=== PATIENT | female | born 1960 | race Caucasian/White ===

== ENCOUNTER 2016-11-08 09:04 | Inpatient (IN) | payer OTHER ==
[~2016-11-08] VITALS: Ht 167.6 cm; Wt 110.5 kg
[~2016-11-08 09:04] MED LIST: ALBU8.5H3 INH; AZEL23SP NS; BUPIVACAINE/PF-EPI 0.5% 1:200K ONE; CEFD300C2 PO; CELE200C PO; ESOM20CA PO; ESTR0.6246 PO; FLUO40CA9 PO; FLUT1DIS3 INH; HYDR25TA6 PO; IPRA3AMP NPPB; LEVO100T PO; METH-356 PO; MODA200T12 PO; PRED-402 PO; PRED20TA PO; SOLI5TAB PO; TOFA5TAB PO; [UNRECOGNIZED DRUG - CODE] PO
[2016-11-08] MEDS ORDERED: MIDAZOLAM 1 MG/ML, 2ML ONE (10:19)
[2016-11-08] MEDS ORDERED: FENTANYL PF 250 MCG/5ML ONE (10:19)
[2016-11-08] MEDS ORDERED: LACTATED RINGERS 1,000 ML IV SCH (10:23)
[2016-11-08] MEDS ORDERED: [UNRECOGNIZED DRUG - OTHER] PO (10:25)
[2016-11-08] MEDS ORDERED: ativan PO (10:25)
[2016-11-08 10:30] VITALS: BP 132/86
[2016-11-08] MEDS ORDERED: HYDROCORTISONE 100 MG INJ. ONE (11:18)
[2016-11-08] MEDS ORDERED: ALBUTEROL SULFATE 2.5 MG/3 ML NPPB PRN (11:30)
[2016-11-08] MEDS ORDERED: METOCLOPRAMIDE 5 MG/ML, 2ML IV PRN (11:30)
[2016-11-08] MEDS ORDERED: MEPERIDINE/PF 25MG/0.5ML IVPush PRN (11:30)
[2016-11-08] MEDS ORDERED: HYDROmorphone 1 MG/ML, 1ML IV PRN (11:30)
[2016-11-08] MEDS ORDERED: ONDANSETRON 2MG/ML, 2ML IVPush PRN ×2 (11:30→12:30)
[2016-11-08] MEDS ORDERED: hydrALAzine 20 MG/ML, 1ML IV PRN (11:30)
[2016-11-08] MEDS ORDERED: LABETALOL 5MG/ML, 20ML IV PRN (11:30)
[2016-11-08] MEDS ORDERED: OXYcodone 5 MG/5 ML ORAL.SOL UDC PO PRN (11:30)
[2016-11-08] MEDS ORDERED: PROMETHAZINE 25 MG/ML, 1ML IV PRN (11:30)
[2016-11-08] MEDS ORDERED: DIPHENHYDRAMINE 25 MG CAPSULE PO PRN (12:30)
[2016-11-08] MEDS ORDERED: HYDROmorphone PCA 30 MG/30 ML IVPush PRN (12:30)
[2016-11-08] MEDS ORDERED: LORazepam 2 MG/ML, 1ML IVPush PRN (12:30)
[2016-11-08] MEDS ORDERED: DIPHENHYDRAMINE 50 MG/ML, 1ML IVPush PRN (12:30)
[2016-11-08] MEDS ORDERED: ENALAPRILAT 1.25 MG/ML, 2ML IVPush PRN (12:30)
[2016-11-08] MEDS ORDERED: hydrALAzine 20 MG/ML, 1ML IVPush PRN (12:30)
[2016-11-08] MEDS ORDERED: TEMPLATE NON-FORMULARY MED. (Esomeprazole Magnesium** (Nexium**) 40 MG) PO SCH (12:30)
[2016-11-08] MEDS ORDERED: HYDROmorphone PCA 30 MG/30 ML ONE (12:42)
[2016-11-08] MEDS ORDERED: FENTANYL PF 100 MCG/2ML ONE (12:52)
[2016-11-08] MEDS ORDERED: MEPERIDINE/PF 50 MG/ML ONE (12:52)
[2016-11-08] MEDS: FENTANYL PF 100 MCG/2ML IV PRN ×2 (12:55→13:05)
[2016-11-08] MEDS: LACTATED RINGERS 1,000 ML IV SCH (15:00)
[2016-11-08] MEDS: METHADONE 10 MG TABLET PO SCH ×3 (15:00→22:20)
[2016-11-08] MEDS ORDERED: CEFAZOLIN 1,000 MG ONE (15:48)
[2016-11-08] MEDS ORDERED: GLYCOPYRROLATE 0.2MG/1ML ONE (15:48)
[2016-11-08] MEDS ORDERED: ROCURONIUM 10 MG/ML ONE (15:48)
[2016-11-08] MEDS ORDERED: NEOSTIGMINE 1 MG/ML, 10ML ONE (15:48)
[2016-11-08] MEDS ORDERED: ONDANSETRON 2MG/ML, 2ML ONE (15:48)
[2016-11-08] MEDS ORDERED: PROPOFOL 10 MG/ML, 20ML ONE (15:48)
[2016-11-08] MEDS ORDERED: LORazepam 1MG TABLET ONE (16:44)
[2016-11-08 19:43] VITALS: BP 115/73
[2016-11-08] MEDS: CEFAZOLIN PMX 2GM/50ML 50 ML IVPB SCH (20:15)
[2016-11-08] MEDS ORDERED: ENOXAPARIN 40 MG/0.4 ML SQ SCH (21:00)
[2016-11-08] MEDS ORDERED: ALBUTEROL/IPRATROPIUM 2.5MG/0.5MG, 3 ML NPPB PRN (21:30)
[2016-11-08 23:55] VITALS: BP 98/57
[2016-11-08 23:56] VITALS: BP 116/76
[2016-11-09] MEDS ORDERED: LORazepam 1MG TABLET ONE ×2 (00:20→01:30)
[2016-11-09] MEDS: LORazepam 0.5MG TABLET PO PRN ×4 (00:30→16:13)
[2016-11-09] MEDS: LACTATED RINGERS 1,000 ML IV SCH ×2 (01:23→11:24)
[2016-11-09 03:20] VITALS: BP 112/74
[2016-11-09] MEDS: CEFAZOLIN PMX 2GM/50ML 50 ML IVPB SCH (04:22)
[2016-11-09] MEDS ORDERED: LEVOTHYROXINE 100 MCG TABLET PO SCH (06:00)
[2016-11-09 06:16] LABS: HEMOGLOBIN 10.8 g/dL (11.7-16.4)
[2016-11-09 06:30] LABS: BLOOD UREA NITROGEN 10 mg/dL (7-18)
[2016-11-09 06:48] VITALS: BP 115/71
[2016-11-09] MEDS: ALBUTEROL/IPRATROPIUM 2.5MG/0.5MG, 3 ML NPPB SCH ×3 (07:00→15:00)
[2016-11-09] MEDS ORDERED: Azelastine/Fluticasone (Dymista Nasal Spray) NS SCH (09:00)
[2016-11-09] MEDS ORDERED: FLUTICASONE/VILANTEROL 100-25MCG/INH INH SCH (09:00)
[2016-11-09] MEDS ORDERED: FLUOXETINE 20 MG CAPSULE PO SCH (09:00)
[2016-11-09] MEDS ORDERED: PANTOPROZOLE 40MG TABLET PO SCH (09:00)
[2016-11-09] MEDS: METHADONE 10 MG TABLET PO SCH ×2 (09:36→16:13)
[2016-11-09 13:27] VITALS: BP 106/71
[2016-11-09] MEDS ORDERED: HYDROmorphone 4MG TABLET PO PRN (13:30)
[2016-11-09] MEDS ORDERED: KETOROLAC 30 MG/1 ML IVPush PRN (13:30)
== END 2016-11-09 17:02 | disposition home or self-care (01) | DRG 168 ==
LOC: ORIP 09:48 → MERGE 11:00 → 4NOR 14:42
PROVIDERS: ADMIT Thoracic Surgery (Cardiothoracic Vascular Surgery); ATTEND Thoracic Surgery (Cardiothoracic Vascular Surgery)
PROC: 0BBC4ZX Excision of Right Upper Lung Lobe, Percutaneous Endoscopic Approach, Diagnostic (ICD-10-PCS; principal; 2016-11-08 11:00)
DX: J84.9 Interstitial pulmonary disease, unspecified (principal); F17.210 Nicotine dependence, cigarettes, uncomplicated; K21.9 Gastro-esophageal reflux disease without esophagitis; M54.9 Dorsalgia, unspecified; G89.4 Chronic pain syndrome; F32.9 Major depressive disorder, single episode, unspecified; E89.0 Postprocedural hypothyroidism; G47.30 Sleep apnea, unspecified; Z90.49 Acquired absence of other specified parts of digestive tract; Z98.49 Cataract extraction status, unspecified eye; Z90.710 Acquired absence of both cervix and uterus; Z90.722 Acquired absence of ovaries, bilateral; Z98.890 Other specified postprocedural states; Z79.52 Long term (current) use of systemic steroids; Z79.899 Other long term (current) drug therapy; Z82.49 Family history of ischemic heart disease and other diseases of the circulatory system; Z72.89 Other problems related to lifestyle
CPT/HCPCS: 36415; 71010; 80048; 85025; 87015; 87070; 87075; 87102; 87116; 87176; 87205; 87206; 88309; 94640; C1729; J0690; J1170; J1650; J1885; J2175; J2250; J2405; J2704; J2710; J3010; J3490; J7620; J1720; J7120

== ENCOUNTER → 2016-12-27 | Outpatient (CLI) | payer OTHER ==
[~2016-12-27] MED LIST changes: -BUPIVACAINE/PF-EPI 0.5% 1:200K ONE; -CEFD300C2 PO; +CEFD300C37 PO; +[UNRECOGNIZED DRUG - OTHER] PO; +ativan PO
== END | disposition home or self-care (01) ==
LOC: LAB 12:10
PROVIDERS: ATTEND Internal Medicine Endocrinology, Diabetes & Metabolism
DX: E89.0 Postprocedural hypothyroidism (principal)
CPT/HCPCS: 36415; 83036; 84439; 84443; 84481

== ENCOUNTER → 2017-05-23 | Outpatient (CLI) | payer OTHER ==
[~2017-05-23] MED LIST changes: -ALBU8.5H3 INH; +ALBU8.5H8 INH; -MODA200T12 PO; +MODA200T27 PO; -SOLI5TAB PO; +SOLI5TAB2 PO
== END | disposition home or self-care (01) ==
LOC: RAD 14:31
PROVIDERS: ATTEND Internal Medicine
DX: G47.33 Obstructive sleep apnea (adult) (pediatric) (principal); R06.09 Other forms of dyspnea; Z98.890 Other specified postprocedural states
CPT/HCPCS: 71250

== ENCOUNTER → 2017-07-04 | Outpatient (CLI) | payer OTHER | END | disposition home or self-care (01) | LOC: CFH 12:26 | PROVIDERS: ATTEND Internal Medicine | DX: R91.8 Other nonspecific abnormal finding of lung field (principal); M51.04 Intervertebral disc disorders with myelopathy, thoracic region; K76.89 Other specified diseases of liver; Z90.49 Acquired absence of other specified parts of digestive tract; Z98.890 Other specified postprocedural states | CPT/HCPCS: 71250 ==

== ENCOUNTER 2017-11-02 11:00 | Emergency (ER) | payer OTHER ==
[~2017-11-02] VITALS: Ht 167.6 cm; Wt 106.8 kg
[2017-11-02] MEDS ORDERED: SODIUM CHLORIDE FLUSH 10ML SYR IVF ONE (12:00)
[2017-11-02 12:43] LABS: MICROSCOPIC NOT IND
[2017-11-02 12:49] LABS: CULTURE INDICATED? NO
[2017-11-02 13:08] LABS: ALBUMIN 2.6 g/dL (3.4-5.0); ANION GAP 4 mmol/L (5-15); CALCIUM 8.1 mg/dL (8.5-10.1); CHLORIDE 104 mmol/L (98-107)
[2017-11-02 13:15] LABS: ALANINE AMINOTRANSFERASE 32 U/L (12-78); ALKALINE PHOSPHATASE 101 U/L (45-117); BILIRUBIN,TOTAL 0.3 mg/dL (0.2-1.0); CREATININE 0.61 mg/dL (0.55-1.02); T4 (THYROXINE) 10.9 mcg/dL (4.8-13.9); TOTAL PROTEIN 6.2 g/dL (6.4-8.2); TROPONIN I < 0.015 ng/mL (0.000-0.045)
[2017-11-02 13:50] LABS: MEAN CORPUSCULAR HEMOGLOBIN 25.2 pg (27.0-34.8); MEAN CORPUSCULAR HGB CONC 32.5 g/dL (32.4-35.8); MEAN CORPUSCULAR VOLUME 77.4 fL (80-100); MEAN PLATELET VOLUME 9.2 fL (7.4-10.4); PLATELET COUNT 173 x10^3/uL (130-400); RED BLOOD COUNT 4.23 x10^6/uL (3.82-5.3); RED CELL DISTRIBUTION WIDTH 18.3 % (9.6-15.2)
[2017-11-02 13:51] LABS: BASOPHILS # (AUTO) 0.07 x10^3/uL (0-0.1); BASOPHILS % (AUTO) 1 % (0-1); EOSINOPHILS # (AUTO) 0.16 x10^3/uL (0-0.4); EOSINOPHILS % (AUTO) 2 % (1-7); LYMPHOCYTES # (AUTO) 1.35 x10^3/uL (1-3.4); LYMPHOCYTES % (AUTO) 13 % (22-44); MONOCYTES # (AUTO) 0.63 x10^3/uL (0.2-0.8); MONOCYTES % (AUTO) 6 % (2-9); NEUTROPHILS # (AUTO) 7.94 x10^3/uL (1.8-6.8); NEUTROPHILS % (AUTO) 78 % (42-75)
[2017-11-02 13:52] LABS: MD MORPH REVIEW ONLY
[2017-11-02 13:56] LABS: ANISOCYTOSIS 1+
[2017-11-02 13:57] LABS: POLYCHROMASIA 1+
[2017-11-02 13:58] LABS: <PLATELET ESTIMATE> ADEQUATE; <PLT MORPHOLOGY> NORMAL PLT MORPH
[2017-11-02] MEDS ORDERED: POTASSIUM CHLORIDE 10% 40 MEQ/30 ML UDC PO ONE (14:30)
[2017-11-02 14:31] VITALS: BP 140/75
== END 2017-11-02 14:50 | disposition home or self-care (01) ==
LOC: ED 14:26
DX: I87.2 Venous insufficiency (chronic) (peripheral) (principal); D64.9 Anemia, unspecified; G47.33 Obstructive sleep apnea (adult) (pediatric); I10 Essential (primary) hypertension; J44.9 Chronic obstructive pulmonary disease, unspecified; Z87.891 Personal history of nicotine dependence; Z90.49 Acquired absence of other specified parts of digestive tract
CPT/HCPCS: 36415; 71045; 80053; 81003; 83735; 83880; 84436; 84443; 84484; 85025; 93005; 93970; 99285

== ENCOUNTER → 2017-12-07 | Outpatient (CLI) | payer OTHER | LOC: RAD 13:07 | PROVIDERS: ATTEND Nurse Practitioner | DX: R91.8 Other nonspecific abnormal finding of lung field (principal) | CPT/HCPCS: 71250 ==

== ENCOUNTER → 2017-12-10 | Outpatient (CLI) | payer OTHER | END | disposition home or self-care (01) | LOC: LAB 14:19 | PROVIDERS: ATTEND Internal Medicine | DX: R91.8 Other nonspecific abnormal finding of lung field (principal) | CPT/HCPCS: 36415; 82784; 82785; 86038; 86225; 86235 ==

== ENCOUNTER → 2018-01-17 | Outpatient (CLI) | payer OTHER ==
[~2018-01-17] MED LIST changes: +IVIG IV; +LORA-446 PO; +iron PO; +potassium PO
[2018-01-17 10:27] LABS: PROTHROMBIN TIME 10.3 Seconds (9.6-11.5)
[2018-01-17 10:31] LABS: ANION GAP 7 mmol/L (5-15); CALCIUM 8.6 mg/dL (8.5-10.1); CHLORIDE 103 mmol/L (98-107)
[2018-01-17 10:35] LABS: ALANINE AMINOTRANSFERASE 27 U/L (12-78); ALKALINE PHOSPHATASE 93 U/L (45-117); BILIRUBIN,TOTAL 0.4 mg/dL (0.2-1.0); CREATININE 0.79 mg/dL (0.55-1.02); TOTAL PROTEIN 6.6 g/dL (6.4-8.2)
[2018-01-17 10:53] LABS: MICROSCOPIC INDICATED
[2018-01-17 11:16] LABS: CULTURE INDICATED? NO
[2018-01-17 14:21] LABS: BASOPHILS # (AUTO) 0.01 x10^3/uL (0-0.1); BASOPHILS % (AUTO) 0 % (0-1); EOSINOPHILS # (AUTO) 0.14 x10^3/uL (0-0.4); EOSINOPHILS % (AUTO) 1 % (1-7); LYMPHOCYTES # (AUTO) 1.82 x10^3/uL (1-3.4); LYMPHOCYTES % (AUTO) 15 % (22-44); MD NO; MEAN CORPUSCULAR HEMOGLOBIN 24.7 pg (27.0-34.8); MEAN CORPUSCULAR HGB CONC 32.1 g/dL (32.4-35.8); MEAN CORPUSCULAR VOLUME 76.9 fL (80-100); MEAN PLATELET VOLUME 6.9 fL (7.4-10.4); MONOCYTES # (AUTO) 0.69 x10^3/uL (0.2-0.8); MONOCYTES % (AUTO) 6 % (2-9); NEUTROPHILS # (AUTO) 9.53 x10^3/uL (1.8-6.8); NEUTROPHILS % (AUTO) 78 % (42-75); PLATELET COUNT 369 x10^3/uL (130-400); RED BLOOD COUNT 4.71 x10^6/uL (3.82-5.3); RED CELL DISTRIBUTION WIDTH 19.8 % (9.6-15.2)
[2018-01-18 19:14] LABS: HEMOGLOBIN A1C 6.3 % (4.2-6.3)
== END | disposition home or self-care (01) ==
LOC: STAR 08:54
PROVIDERS: ATTEND Orthopaedic Surgery
DX: Z01.818 Encounter for other preprocedural examination (principal); M17.11 Unilateral primary osteoarthritis, right knee
CPT/HCPCS: 36415; 80053; 81001; 83036; 85025; 85610; 85730; 87081; 87147; 87806; G0475

== ENCOUNTER 2018-01-21 12:37 | Inpatient (IN) | payer OTHER ==
[2018-01-17 09:27] VITALS: BP 146/87
[~2018-01-21] VITALS: Ht 167.6 cm; Wt 98.0 kg
[~2018-01-21 12:37] MED LIST changes: +CEFAZOLIN 1,000 MG ONE; +DEXAMETHASONE 4 MG/ML, 1ML ONE; +LIDOCAINE-MPF 2% ,5ML ONE; +PROPOFOL 10 MG/ML, 20ML ONE; +ROCURONIUM 10MG/ML,5ML ONE; +WATER-INJECTION,STERILE 10 ML IV ONE
[2018-01-21] MEDS ORDERED: LACTATED RINGERS 1,000 ML IV SCH (13:12)
[2018-01-21] MEDS ORDERED: GABAPENTIN 300 MG CAPSULE PO SCH (13:30)
[2018-01-21] MEDS ORDERED: ACETAMINOPHEN 500 MG TABLET PO ONE (13:30)
[2018-01-21] MEDS ORDERED: KETOROLAC 60 MG/2 ML ONE (13:41)
[2018-01-21] MEDS ORDERED: TRANEXAMIC ACID 100 MG/ML, 10ML ONE ×4 (13:41→15:26)
[2018-01-21] MEDS ORDERED: EPINEPHRINE 1 MG/ML, 1ML ONE (13:42)
[2018-01-21] MEDS ORDERED: ROPIvacaine/PF 0.2%, 20 ML ONE (13:42)
[2018-01-21] MEDS ORDERED: MIDAZOLAM 1 MG/ML, 2ML ONE (13:59)
[2018-01-21] MEDS ORDERED: FENTANYL PF 250 MCG/5ML ONE (13:59)
[2018-01-21] MEDS ORDERED: OxyconTIN ER 10 MG TAB.ER ONE ×2 (14:42→14:58)
[2018-01-21] MEDS ORDERED: ONDANSETRON ODT 8 MG ONE (14:43)
[2018-01-21] MEDS: D5%-0.45NACL+KCL 20MEQ 1,000 ML IV SCH ×2 (14:47→23:43)
[2018-01-21] MEDS ORDERED: BUPIVACAINE 0.25% ONE (14:51)
[2018-01-21] MEDS ORDERED: LIDOCAINE-MPF 1%, 5ML ONE (14:52)
[2018-01-21] MEDS ORDERED: TRIAMCINOLONE ACETONIDE 40 MG/ML, 1ML ONE (14:52)
[2018-01-21] MEDS ORDERED: ALUMINUM/MAG/SIMETHICONE 30 ML UDC PO PRN (15:00)
[2018-01-21] MEDS ORDERED: ONDANSETRON 2MG/ML, 2ML IV PRN (15:00)
[2018-01-21] MEDS ORDERED: SENNA/DOCUSATE TABLET PO PRN (15:00)
[2018-01-21] MEDS ORDERED: MAGNESIUM HYDROXIDE 8%, 30ML UDC PO PRN (15:00)
[2018-01-21] MEDS ORDERED: ONDANSETRON 4 MG TABLET PO PRN (15:00)
[2018-01-21] MEDS ORDERED: ACETAMINOPHEN 650 MG/20.3 ML UDC PO PRN (15:00)
[2018-01-21] MEDS ORDERED: DIPHENHYDRAMINE 50 MG CAPSULE PO PRN (15:00)
[2018-01-21] MEDS ORDERED: morphine SULFATE 15 MG TAB.IR PO PRN (15:00)
[2018-01-21] MEDS ORDERED: morphine SULFATE 10 MG/ML, 1ML IV PRN (15:00)
[2018-01-21] MEDS ORDERED: DIAZEPAM 5 MG TABLET PO PRN (15:00)
[2018-01-21] MEDS ORDERED: TRANEXAMIC ACID 1,000 MG in SODIUM CHLORIDE 0.9% 100 ML IVPB ONE (15:00)
[2018-01-21] MEDS ORDERED: hydrALAzine 20 MG/ML, 1ML IV PRN (16:00)
[2018-01-21] MEDS ORDERED: MEPERIDINE/PF 25MG/0.5ML IVPush PRN (16:00)
[2018-01-21] MEDS ORDERED: HALOPERIDOL 5 MG/ML IV PRN (16:00)
[2018-01-21] MEDS ORDERED: PROMETHAZINE 25 MG/ML, 1ML IV PRN (16:00)
[2018-01-21] MEDS ORDERED: OXYcodone 5 MG/5 ML ORAL.SOL UDC PO PRN (16:00)
[2018-01-21] MEDS ORDERED: LABETALOL 5MG/ML, 20ML IV PRN (16:00)
[2018-01-21] MEDS ORDERED: LORazepam 2 MG/ML, 1ML IVPush PRN (16:00)
[2018-01-21] MEDS ORDERED: HYDROmorphone 1 MG/ML, 1ML IV PRN (16:00)
[2018-01-21] MEDS ORDERED: FENTANYL PF 100 MCG/2ML ONE (16:34)
[2018-01-21] MEDS ORDERED: OXYcodone 5 MG/5 ML ORAL.SOL UDC ONE (16:35)
[2018-01-21] MEDS: FENTANYL PF 100 MCG/2ML IV PRN ×2 (16:40→17:01)
[2018-01-21] MEDS ORDERED: ALBUTEROL/IPRATROPIUM 2.5MG/0.5MG, 3 ML ONE (16:47)
[2018-01-21] MEDS ORDERED: ALBUTEROL/IPRATROPIUM 2.5MG/0.5MG, 3 ML NEB ONE (17:00)
[2018-01-21] MEDS ORDERED: DIPHENHYDRAMINE 25 MG CAPSULE PO PRN (18:21)
[2018-01-21] MEDS ORDERED: ALBUTEROL SULFATE 2.5MG/0.5ML NPPB PRN (19:00)
[2018-01-21 20:04] VITALS: BP 139/66
[2018-01-21] MEDS: METHADONE 10 MG TABLET PO SCH (20:57)
[2018-01-21] MEDS: DOCUSATE 100 MG CAPSULE PO SCH (20:57)
[2018-01-21] MEDS: FLUOXETINE HCL 20 MG CAPSULE PO SCH (20:57)
[2018-01-21] MEDS: CEFAZOLIN PMX 1GM/50ML 50 ML IVPB SCH (23:12)
[2018-01-21] MEDS: LORazepam 1MG TABLET PO SCH (23:42)
[2018-01-22 00:15] VITALS: BP 111/55
[2018-01-22 04:28] VITALS: BP 110/70
[2018-01-22] MEDS: METHADONE 10 MG TABLET PO SCH (05:02)
[2018-01-22] MEDS ORDERED: LEVOTHYROXINE 100 MCG TABLET PO SCH (06:00)
[2018-01-22] MEDS ORDERED: DEXAMETHASONE 4 MG/ML, 1ML IVPush SCH (06:00)
[2018-01-22] MEDS: LORazepam 1MG TABLET PO SCH (06:04)
[2018-01-22] MEDS: CEFAZOLIN PMX 1GM/50ML 50 ML IVPB SCH (06:09)
[2018-01-22] MEDS ORDERED: PANTOPROZOLE 40MG TABLET PO SCH (07:30)
[2018-01-22 08:12] VITALS: BP 135/76
[2018-01-22] MEDS: FLUOXETINE HCL 20 MG CAPSULE PO SCH (08:54)
[2018-01-22] MEDS: DOCUSATE 100 MG CAPSULE PO SCH (08:54)
[2018-01-22] MEDS ORDERED: RIVAROXABAN 10 MG TABLET PO SCH (09:00)
[2018-01-22] MEDS ORDERED: TAMSULOSIN 0.4 MG CAP.ER.24H PO SCH (09:00)
[2018-01-22] MEDS ORDERED: HYDROCHLOROTHIAZIDE 25 MG TABLET PO SCH (09:00)
[2018-01-22] MEDS ORDERED: CELE200C PO (09:10)
[2018-01-22] MEDS ORDERED: ONDA4TAB10 PO (09:10)
[2018-01-22] MEDS ORDERED: RIVA10TA PO (09:10)
[2018-01-22] MEDS ORDERED: DOCU-131 PO (09:10)
[2018-01-22] MEDS ORDERED: morphine SULFATE 10 MG/ML, 1ML IV PRN (11:00)
[2018-01-22] MEDS ORDERED: KETOROLAC 30 MG/1 ML IV SCH (15:00)
== END 2018-01-22 11:00 | disposition home or self-care (01) | DRG 470 ==
LOC: ORIP 12:37 → 4NOR 18:05 → DCLOUNGE 01-22 10:35
PROVIDERS: ADMIT Orthopaedic Surgery; ATTEND Orthopaedic Surgery
PROC: 3E0U33Z Introduction of Anti-inflammatory into Joints, Percutaneous Approach (ICD-10-PCS; 2018-01-21)
PROC: 0SRC069 Replacement of Right Knee Joint with Oxidized Zirconium on Polyethylene Synthetic Substitute, Cemented, Open Approach (ICD-10-PCS; principal; 2018-01-21 15:30)
DX: M17.0 Bilateral primary osteoarthritis of knee (principal); K21.9 Gastro-esophageal reflux disease without esophagitis; G47.30 Sleep apnea, unspecified; H40.9 Unspecified glaucoma; M06.9 Rheumatoid arthritis, unspecified; Z90.49 Acquired absence of other specified parts of digestive tract; Z90.89 Acquired absence of other organs
CPT/HCPCS: 36415; 85014; 85018; 94640; C1713; J0171; J0690; J1100; J1885; J2250; J2704; J2795; J3010; J3301; J3490; J7620; Q0162; C1776; J2270; J7120

== ENCOUNTER 2018-03-18 10:34 | Observation (INO) | payer OTHER ==
[2018-03-14 12:20] VITALS: BP 122/81
[2018-03-15 12:22] LABS: MEAN CORPUSCULAR HEMOGLOBIN 27.5 pg (27.0-34.8); MEAN CORPUSCULAR HGB CONC 32.9 g/dL (32.4-35.8); MEAN CORPUSCULAR VOLUME 83.6 fL (80-100); MEAN PLATELET VOLUME 10.1 fL (7.4-10.4); RED CELL DISTRIBUTION WIDTH 21.2 % (9.6-15.2)
[2018-03-15 12:47] LABS: PLATELET COUNT 235 x10^3/uL (130-400)
[2018-03-15 12:51] LABS: MD YES
[2018-03-15 12:54] LABS: BAND#(MANUAL) 0.07 x10^3/uL; BANDS%(MANUAL) 1 % (0-7); EOS#(MANUAL) 0.07 x10^3/uL (0.0-0.4); EOS% (MANUAL) 1 % (1-7); LYMPH#(MANUAL) 0.91 x10^3/uL (1-3.4); LYMPHS% (MANUAL) 13 % (22-44); MONOS#(MANUAL) 0.21 x10^3/uL (0.3-2.7); MONOS% (MANUAL) 3 % (2-9); SEG#(MANUAL) 5.74 x10^3/uL (1.8-6.8); SEGS% (MANUAL) 82 % (42-75)
[2018-03-15 12:55] LABS: <PLATELET ESTIMATE> ADEQUATE; <PLT MORPHOLOGY> NORMAL PLT MORPH; ANISOCYTOSIS 1+
[~2018-03-18] VITALS: Ht 167.6 cm; Wt 89.7 kg
[~2018-03-18 10:34] MED LIST changes: -CEFAZOLIN 1,000 MG ONE; -DEXAMETHASONE 4 MG/ML, 1ML ONE; +DOCU-131 PO; +EPINEPHRINE 1 MG/ML, 1ML ONE; -IPRA3AMP NPPB; +IPRA3AMP30 NPPB; +KETOROLAC 60 MG/2 ML ONE; -LIDOCAINE-MPF 2% ,5ML ONE; +MULT-658 PO; +ONDA4TAB10 PO; -PROPOFOL 10 MG/ML, 20ML ONE; +RIVA10TA PO; -ROCURONIUM 10MG/ML,5ML ONE; +ROPIvacaine/PF 0.2%, 20 ML ONE; +TRANEXAMIC ACID 100 MG/ML, 10ML ONE; -WATER-INJECTION,STERILE 10 ML IV ONE
[2018-03-18] MEDS ORDERED: LACTATED RINGERS 1,000 ML IV SCH (11:07)
[2018-03-18] MEDS ORDERED: LIDOCAINE-MPF 1%, 2ML INFIL ONE (11:30)
[2018-03-18] MEDS ORDERED: ACETAMINOPHEN 500 MG TABLET PO ONE (11:30)
[2018-03-18] MEDS ORDERED: GABAPENTIN 300 MG CAPSULE PO ONE (11:30)
[2018-03-18] MEDS ORDERED: FENTANYL PF 250 MCG/5ML ONE (11:55)
[2018-03-18] MEDS ORDERED: MIDAZOLAM 1 MG/ML, 2ML ONE (11:55)
[2018-03-18] MEDS ORDERED: PROPOFOL 10 MG/ML, 20ML ONE (11:56)
[2018-03-18] MEDS ORDERED: ROCURONIUM 10MG/ML,5ML ONE (11:57)
[2018-03-18] MEDS ORDERED: GLYCOPYRROLATE 0.4 MG/2 ML, 2ML ONE (11:58)
[2018-03-18] MEDS ORDERED: NEOSTIGMINE 1 MG/ML, 10ML ONE (11:58)
[2018-03-18] MEDS ORDERED: ROPIvacaine/PF 0.2%, 20 ML ONE (12:00)
[2018-03-18] MEDS ORDERED: ONDANSETRON 2MG/ML, 2ML ONE (13:27)
[2018-03-18] MEDS ORDERED: DEXAMETHASONE 4 MG/ML, 1ML ONE ×2 (13:27)
[2018-03-18] MEDS ORDERED: PROMETHAZINE 12.5 MG SUPP PR PRN ×2 (13:30)
[2018-03-18] MEDS ORDERED: LABETALOL 5MG/ML, 20ML IV PRN (13:30)
[2018-03-18] MEDS ORDERED: PROMETHAZINE 25 MG/ML, 1ML IV PRN (13:30)
[2018-03-18] MEDS ORDERED: MAGNESIUM HYDROXIDE 8%, 30ML UDC PO PRN (13:30)
[2018-03-18] MEDS ORDERED: ALBUTEROL/IPRATROPIUM 2.5MG/0.5MG, 3 ML NPPB PRN (13:30)
[2018-03-18] MEDS ORDERED: SENNA/DOCUSATE TABLET PO PRN (13:30)
[2018-03-18] MEDS ORDERED: DIPHENHYDRAMINE 50 MG CAPSULE PO PRN (13:30)
[2018-03-18] MEDS ORDERED: morphine SULFATE 15 MG TAB.IR PO PRN (13:30)
[2018-03-18] MEDS ORDERED: MORPHINE SULFATE 4 MG/ML, 1ML IVPush PRN (13:30)
[2018-03-18] MEDS ORDERED: ALUMINUM/MAG/SIMETHICONE 30 ML UDC PO PRN (13:30)
[2018-03-18] MEDS ORDERED: ONDANSETRON ODT 8 MG PO PRN (13:30)
[2018-03-18] MEDS ORDERED: PROMETHAZINE 25 MG/ML, 1ML IM PRN (13:30)
[2018-03-18] MEDS ORDERED: ONDANSETRON 4 MG TABLET PO PRN (13:30)
[2018-03-18] MEDS ORDERED: ALBUTEROL SULFATE 2.5 MG/3 ML NPPB PRN (13:30)
[2018-03-18] MEDS ORDERED: OXYcodone 5 MG/5 ML ORAL.SOL UDC PO PRN (13:30)
[2018-03-18] MEDS ORDERED: ONDANSETRON 2MG/ML, 2ML IV PRN ×2 (13:30)
[2018-03-18] MEDS ORDERED: PROMETHAZINE 25 MG SUPP PR PRN (13:30)
[2018-03-18] MEDS ORDERED: ACETAMINOPHEN 650 MG/20.3 ML UDC PO PRN (13:30)
[2018-03-18] MEDS ORDERED: MEPERIDINE/PF 25MG/0.5ML IVPush PRN (13:30)
[2018-03-18] MEDS ORDERED: TRANEXAMIC ACID 1,000 MG in SODIUM CHLORIDE 0.9% 100 ML IVPB ONE (13:30)
[2018-03-18] MEDS ORDERED: BISACODYL 10 MG SUPP PR PRN (13:30)
[2018-03-18] MEDS ORDERED: morphine SULFATE 10 MG/ML, 1ML IV PRN ×4 (13:30→17:30)
[2018-03-18] MEDS ORDERED: hydrALAzine 20 MG/ML, 1ML IV PRN (13:30)
[2018-03-18] MEDS ORDERED: FENTANYL PF 100 MCG/2ML ONE ×3 (13:49→14:55)
[2018-03-18] MEDS: FENTANYL PF 100 MCG/2ML IV PRN ×2 (14:57→15:02)
[2018-03-18] MEDS ORDERED: OXYcodone 5 MG/5 ML ORAL.SOL UDC ONE (15:09)
[2018-03-18] MEDS: HYDROmorphone 1 MG/ML, 1ML IV PRN ×3 (15:12→15:30)
[2018-03-18] MEDS ORDERED: ALBUTEROL SULFATE 2.5 MG/3 ML HHN PRN (17:00)
[2018-03-18] MEDS: METHADONE 10 MG TABLET PO SCH (17:46)
[2018-03-18] MEDS: D5%-0.45NACL+KCL 20MEQ 1,000 ML IV SCH (18:43)
[2018-03-18 20:00] VITALS: BP 117/50
[2018-03-18] MEDS: DOCUSATE 100 MG CAPSULE PO SCH (21:00)
[2018-03-18] MEDS: LORazepam 1MG TABLET PO SCH (21:14)
[2018-03-18] MEDS: FLUOXETINE HCL 20 MG CAPSULE PO SCH (21:14)
[2018-03-18] MEDS: CEFAZOLIN PMX 1GM/50ML 50 ML IVPB SCH (21:14)
[2018-03-18 23:54] VITALS: BP 110/69
[2018-03-19] MEDS: METHADONE 10 MG TABLET PO SCH ×2 (02:36→08:49)
[2018-03-19] MEDS: LORazepam 1MG TABLET PO SCH (02:43)
[2018-03-19] MEDS: D5%-0.45NACL+KCL 20MEQ 1,000 ML IV SCH (03:00)
[2018-03-19 05:04] VITALS: BP 125/76
[2018-03-19] MEDS ORDERED: DEXAMETHASONE 4 MG/ML, 1ML IVPush SCH (06:00)
[2018-03-19] MEDS ORDERED: LEVOTHYROXINE 100 MCG TABLET PO SCH (06:00)
[2018-03-19] MEDS: morphine SULFATE 10 MG/ML, 1ML IV PRN ×2 (06:31→07:38)
[2018-03-19] MEDS: CEFAZOLIN PMX 1GM/50ML 50 ML IVPB SCH (06:31)
[2018-03-19 07:00] VITALS: BP 133/78
[2018-03-19] MEDS ORDERED: OMEPRAZOLE 20 MG CAPSULE.DR PO SCH (07:30)
[2018-03-19] MEDS: FLUOXETINE HCL 20 MG CAPSULE PO SCH (08:49)
[2018-03-19] MEDS: DOCUSATE 100 MG CAPSULE PO SCH (08:50)
[2018-03-19] MEDS ORDERED: RIVAROXABAN 10 MG TABLET PO SCH (09:00)
[2018-03-19] MEDS ORDERED: HYDROCHLOROTHIAZIDE 25 MG TABLET PO SCH (09:00)
[2018-03-19] MEDS ORDERED: TAMSULOSIN 0.4 MG CAP.ER.24H PO SCH (09:00)
[2018-03-19] MEDS ORDERED: DOCU-131 PO (09:48)
[2018-03-19] MEDS ORDERED: RIVA10TA PO (09:48)
[2018-03-19] MEDS ORDERED: CELE200C PO (09:49)
[2018-03-19] MEDS ORDERED: ONDA4TAB7 PO (09:49)
[2018-03-19] MEDS ORDERED: MORP30TA PO (11:03)
[2018-03-19] MEDS ORDERED: KETOROLAC 30 MG/1 ML IV SCH (17:00)
== END 2018-03-19 11:23 | disposition home or self-care (01) ==
LOC: OUT 10:34 → ORIP 13:10 → 4NOR 16:34 → DCLOUNGE 03-19 10:58
PROVIDERS: ADMIT Orthopaedic Surgery; ATTEND Orthopaedic Surgery
DX: M17.12 Unilateral primary osteoarthritis, left knee (principal); M23.205 Derangement of unspecified medial meniscus due to old tear or injury, unspecified knee
CPT/HCPCS: 27447; 36415; 73560; 85014; 85018; 85025; 96365; 96375; 96376; 97116; 97161; 97165; C1713; C1776; G0378; G8978; G8979; G8980; J0171; J0690; J1100; J1170; J1885; J2250; J2270; J2405; J2704; J2710; J2795; J3010; J3480; J7120

== ENCOUNTER 2018-09-23 11:56 | Inpatient (IN) | payer OTHER ==
[~2018-09-23] VITALS: Ht 167.6 cm; Wt 90.8 kg
[~2018-09-23 11:56] MED LIST changes: -EPINEPHRINE 1 MG/ML, 1ML ONE; -KETOROLAC 60 MG/2 ML ONE; -METH-356 PO; +METH10TA2 PO; +MORP30TA PO; +ONDA4TAB7 PO; -RIVA10TA PO; +RIVA10TA2 PO; -ROPIvacaine/PF 0.2%, 20 ML ONE; -TRANEXAMIC ACID 100 MG/ML, 10ML ONE
[2018-09-23] MEDS ORDERED: ALBUTEROL SULFATE 2.5 MG/3 ML NPPB ONE (12:30)
[2018-09-23 13:08] LABS: ALBUMIN 2.7 g/dL (3.4-5.0); ANION GAP 4 mmol/L (5-15); CALCIUM 8.3 mg/dL (8.5-10.1); CHLORIDE 100 mmol/L (98-107)
[2018-09-23 13:11] LABS: CREATININE 0.77 mg/dL (0.55-1.02)
[2018-09-23 13:26] LABS: MEAN CORPUSCULAR HEMOGLOBIN 27.2 pg (27.0-34.8); MEAN CORPUSCULAR HGB CONC 32.2 g/dL (32.4-35.8); MEAN CORPUSCULAR VOLUME 84.3 fL (80-100); MEAN PLATELET VOLUME 9.1 fL (7.4-10.4); PLATELET COUNT 236 x10^3/uL (130-400); RED BLOOD COUNT 4.28 x10^6/uL (3.82-5.3); RED CELL DISTRIBUTION WIDTH 17.5 % (9.6-15.2)
[2018-09-23 13:27] LABS: BASOPHILS # (AUTO) 0.04 x10^3/uL (0-0.1); BASOPHILS % (AUTO) 0 % (0-1); EOSINOPHILS # (AUTO) 0.28 x10^3/uL (0-0.4); EOSINOPHILS % (AUTO) 2 % (1-7); LYMPHOCYTES # (AUTO) 0.78 x10^3/uL (1-3.4); LYMPHOCYTES % (AUTO) 6 % (22-44); MD MORPH REVIEW ONLY; MONOCYTES # (AUTO) 0.65 x10^3/uL (0.2-0.8); MONOCYTES % (AUTO) 5 % (2-9); NEUTROPHILS # (AUTO) 11.89 x10^3/uL (1.8-6.8); NEUTROPHILS % (AUTO) 87 % (42-75)
[2018-09-23 13:28] LABS: ANISOCYTOSIS 1+; POLYCHROMASIA 1+
[2018-09-23 13:29] LABS: <PLATELET ESTIMATE> ADEQUATE; LARGE PLATELETS 1+; STOMATOCYTES 1+
--- NOTE | 2018-09-23 13:50 | NUR ---
PT PRESENTING TO ER FOR INCREASED SOB WITH COUGH AND CP. PT ATTMEPTED TO SEE PULM TODAY BUT COULDNT GET IN FOR APT. PT REPORTING RECURRENT PNA AND STATES FEELS THE SAME. CONNECTED TO ALL MONITORING, SATS 90% ON 4L, PT NORMALLY ON 3L 05/03. AT BEDSIDE. CALL LIGHT WTIHINR EACH. AWAITING MD ASSESSMENT
[2018-09-23] MEDS ORDERED: ALBUTEROL SULFATE 2.5 MG/3 ML ONE (13:56)
--- NOTE | 2018-09-23 14:19 | NUR ---
RT TREATMENT COMPLETED. PT STATS UP SLIGHTLY FROM 90% TO 93% AFTER TREATMENT. PT STATES COUGH FEELS LOOSER
--- NOTE | 2018-09-23 14:54 | NUR ---
REPORT GIVEN TO SAI FARRIS
[2018-09-23] MEDS ORDERED: CEFTRIAXONE PMX 1GM/50ML 50 ML IV ONE (15:00)
[2018-09-23] MEDS ORDERED: AZITHROMYCIN 500 MG in SODIUM CHLORIDE 0.9% 250 ML IV ONE (15:00)
[2018-09-23] MEDS ORDERED: methylPREDNISolone SOD SUCC 125 MG/2 ML IVPush ONE (15:00)
[2018-09-23] MEDS ORDERED: CEFTRIAXONE PMX 1GM/50ML 50 ML ONE (15:11)
[2018-09-23] MEDS ORDERED: methylPREDNISolone SOD SUCC 125 MG/2 ML ONE (15:12)
--- NOTE | 2018-09-23 15:26 | NUR ---
ABX STARTED AFTER BLOOD CULTURES DRAWN
[2018-09-23] MEDS ORDERED: LORazepam 2 MG/ML, 1ML ONE (16:55)
[2018-09-23] MEDS ORDERED: LORazepam 2 MG/ML, 1ML IVPush ONE (17:00)
--- NOTE | 2018-09-23 17:25 | NUR ---
PT MEDICATED PER EMAR
[2018-09-23] MEDS ORDERED: LABETALOL 5MG/ML, 20ML IVPush PRN (17:30)
[2018-09-23] MEDS ORDERED: ONDANSETRON 2MG/ML, 2ML IVPush PRN (17:30)
[2018-09-23] MEDS ORDERED: ONDANSETRON ODT 4 MG PO PRN (17:30)
[2018-09-23] MEDS ORDERED: POLYETHYLENE GLYCOL 17 GM PACKET PO PRN (17:30)
--- NOTE | 2018-09-23 17:46 | NUR ---
Ambulated with a steady gait to the restroom. Pateint taken off oxy mask and placed on 5L NC per her request. Ok'd by primary RN Sue. Provided with meal tray. No other needs.
[2018-09-23 17:51] LABS: FREE T4 (FREE THYROXINE) 1.17 ng/dL (0.76-1.46)
--- NOTE | 2018-09-23 17:58 | NUR ---
report given to fela denis
[2018-09-23] MEDS ORDERED: POTASSIUM CHLORIDE 20 MEQ TAB.ER.PRT PO ONE ×2 (18:00→22:00)
[2018-09-23] MEDS ORDERED: ONDANSETRON 4 MG TABLET PO PRN (18:00)
[2018-09-23] MEDS ORDERED: SODIUM CHLORIDE 0.9% 1,000 ML IV SCH (18:18)
[2018-09-23] MEDS: methylPREDNISolone SOD SUCC 125 MG/2 ML IVPush SCH (18:42)
[2018-09-23 19:42] VITALS: BP 107/70
[2018-09-23] MEDS ORDERED: ALBUTEROL/IPRATROPIUM 2.5MG/0.5MG, 3 ML NPPB PRN (20:00)
[2018-09-23] MEDS: ENOXAPARIN 40 MG/0.4 ML SQ SCH (20:06)
[2018-09-23] MEDS: BUDESONIDE 0.5 MG/2 ML INHA NPPB SCH (21:00)
[2018-09-23] MEDS: LORazepam 1MG TABLET PO SCH (21:00)
[2018-09-23] MEDS: ALBUTEROL/IPRATROPIUM 2.5MG/0.5MG, 3 ML NPPB SCH (21:00)
[2018-09-23] MEDS: DOXYCYCLINE 100MG TABLET PO SCH (22:02)
[2018-09-23] MEDS: METHADONE 10 MG TABLET PO SCH (22:02)
[2018-09-23] MEDS: FLUOXETINE HCL 20 MG CAPSULE PO SCH (22:03)
[2018-09-24] MEDS: methylPREDNISolone SOD SUCC 125 MG/2 ML IVPush SCH ×4 (00:59→18:39)
[2018-09-24 02:10] VITALS: BP 106/60
[2018-09-24] MEDS: ALBUTEROL/IPRATROPIUM 2.5MG/0.5MG, 3 ML NPPB SCH ×4 (02:30→20:40)
[2018-09-24] MEDS: LORazepam 1MG TABLET PO SCH ×4 (05:35→21:49)
[2018-09-24] MEDS ORDERED: LEVOTHYROXINE 100 MCG TABLET PO SCH (06:00)
[2018-09-24 06:10] LABS: BASOPHILS % (AUTO) 0 % (0-1); EOSINOPHILS % (AUTO) 0 % (1-7); LYMPHOCYTES # (AUTO) 0.37 x10^3/uL (1-3.4); LYMPHOCYTES % (AUTO) 3 % (22-44); MD NO; MEAN CORPUSCULAR HEMOGLOBIN 28.2 pg (27.0-34.8); MEAN CORPUSCULAR HGB CONC 33.3 g/dL (32.4-35.8); MEAN CORPUSCULAR VOLUME 84.8 fL (80-100); MEAN PLATELET VOLUME 8.3 fL (7.4-10.4); MONOCYTES # (AUTO) 0.26 x10^3/uL (0.2-0.8); MONOCYTES % (AUTO) 2 % (2-9); NEUTROPHILS # (AUTO) 10.18 x10^3/uL (1.8-6.8); NEUTROPHILS % (AUTO) 94 % (42-75); PLATELET COUNT 243 x10^3/uL (130-400); RED BLOOD COUNT 3.75 x10^6/uL (3.82-5.3); RED CELL DISTRIBUTION WIDTH 17.6 % (9.6-15.2)
[2018-09-24 06:21] LABS: ALBUMIN 2.3 g/dL (3.4-5.0); ANION GAP 5 mmol/L (5-15); CALCIUM 8.6 mg/dL (8.5-10.1); CHLORIDE 106 mmol/L (98-107)
[2018-09-24 06:33] LABS: ALANINE AMINOTRANSFERASE 19 U/L (12-78); ALKALINE PHOSPHATASE 105 U/L (45-117); BILIRUBIN,TOTAL 0.3 mg/dL (0.2-1.0); CREATININE 0.72 mg/dL (0.55-1.02); THYROID STIMULATING HORMONE 0.144 mIU/L (0.358-3.740); TOTAL PROTEIN 6.6 g/dL (6.4-8.2)
[2018-09-24 06:59] VITALS: BP 111/68
[2018-09-24] MEDS: PANTOPROZOLE 40MG TABLET PO SCH (08:11)
[2018-09-24] MEDS: DOXYCYCLINE 100MG TABLET PO SCH ×2 (08:12→21:49)
[2018-09-24] MEDS: FLUOXETINE HCL 20 MG CAPSULE PO SCH ×2 (08:12→21:49)
[2018-09-24] MEDS: MULTIVITAMIN 1 TABLET PO SCH (08:12)
[2018-09-24] MEDS: SENNA/DOCUSATE TABLET PO SCH (08:13)
[2018-09-24] MEDS: BUDESONIDE 0.5 MG/2 ML INHA NPPB SCH ×2 (08:42→20:40)
[2018-09-24] MEDS: METHADONE 10 MG TABLET PO SCH ×4 (09:25→21:54)
[2018-09-24] MEDS: NEUTRA PHOS K 250 MG TABLET PO SCH ×3 (09:26→21:49)
[2018-09-24 12:23] VITALS: BP 104/64
[2018-09-24] MEDS ORDERED: POTASSIUM CHLORIDE 20 MEQ TAB.ER.PRT PO ONE ×2 (15:30→22:00)
[2018-09-24] MEDS ORDERED: FUROSEMIDE 40 MG/4 ML IV ONE ×2 (15:30→22:00)
[2018-09-24] MEDS: CEFTRIAXONE PMX 2GM/50ML 50 ML IV SCH (15:52)
[2018-09-24] MEDS: ENOXAPARIN 40 MG/0.4 ML SQ SCH (18:38)
[2018-09-24 19:52] VITALS: BP 130/79
[2018-09-25] MEDS: methylPREDNISolone SOD SUCC 125 MG/2 ML IVPush SCH ×4 (01:00→22:14)
[2018-09-25 02:10] VITALS: BP 121/74
[2018-09-25] MEDS: ALBUTEROL/IPRATROPIUM 2.5MG/0.5MG, 3 ML NPPB SCH ×4 (02:20→21:29)
[2018-09-25 05:19] LABS: ALANINE AMINOTRANSFERASE 21 U/L (12-78); ALBUMIN 2.4 g/dL (3.4-5.0); ANION GAP 4 mmol/L (5-15); CALCIUM 8.7 mg/dL (8.5-10.1); CHLORIDE 107 mmol/L (98-107)
[2018-09-25 05:27] LABS: ALKALINE PHOSPHATASE 104 U/L (45-117); BILIRUBIN,TOTAL 0.3 mg/dL (0.2-1.0); TOTAL PROTEIN 7.1 g/dL (6.4-8.2)
[2018-09-25] MEDS: LORazepam 1MG TABLET PO SCH ×4 (05:42→22:15)
[2018-09-25] MEDS: LEVOTHYROXINE 75 MCG TABLET PO SCH (05:42)
[2018-09-25 06:49] LABS: MEAN CORPUSCULAR HEMOGLOBIN 28.2 pg (27.0-34.8); MEAN CORPUSCULAR HGB CONC 33.3 g/dL (32.4-35.8); MEAN CORPUSCULAR VOLUME 84.6 fL (80-100)
[2018-09-25 06:50] LABS: MEAN PLATELET VOLUME 7.5 fL (7.4-10.4); PLATELET COUNT 315 x10^3/uL (130-400)
[2018-09-25 06:51] LABS: BASOPHILS # (AUTO) 0.05 x10^3/uL (0-0.1); BASOPHILS % (AUTO) 0 % (0-1); EOSINOPHILS # (AUTO) 0.01 x10^3/uL (0-0.4); EOSINOPHILS % (AUTO) 0 % (1-7); LYMPHOCYTES # (AUTO) 0.43 x10^3/uL (1-3.4); LYMPHOCYTES % (AUTO) 3 % (22-44); MD SCAN; MONOCYTES # (AUTO) 0.49 x10^3/uL (0.2-0.8); MONOCYTES % (AUTO) 3 % (2-9); NEUTROPHILS # (AUTO) 13.49 x10^3/uL (1.8-6.8); NEUTROPHILS % (AUTO) 93 % (42-75)
[2018-09-25 07:45] VITALS: BP 107/68
[2018-09-25] MEDS: BUDESONIDE 0.5 MG/2 ML INHA NPPB SCH ×2 (08:50→21:29)
[2018-09-25] MEDS ORDERED: FUROSEMIDE 10 MG/ML ORAL SOL PO SCH (09:00)
[2018-09-25] MEDS: FUROSEMIDE 40 MG/4 ML IV SCH ×2 (10:07→17:27)
[2018-09-25] MEDS: FLUOXETINE HCL 20 MG CAPSULE PO SCH ×2 (10:08→22:16)
[2018-09-25] MEDS: SENNA/DOCUSATE TABLET PO SCH (10:08)
[2018-09-25] MEDS: POTASSIUM CHLORIDE 20 MEQ TAB.ER.PRT PO SCH ×2 (10:08→17:28)
[2018-09-25] MEDS: MULTIVITAMIN 1 TABLET PO SCH (10:09)
[2018-09-25] MEDS: DOXYCYCLINE 100MG TABLET PO SCH ×2 (10:09→22:14)
[2018-09-25] MEDS: PANTOPROZOLE 40MG TABLET PO SCH (10:09)
[2018-09-25] MEDS: NEUTRA PHOS K 250 MG TABLET PO SCH ×3 (10:23→22:17)
[2018-09-25] MEDS: METHADONE 10 MG TABLET PO SCH ×3 (10:23→22:15)
[2018-09-25 12:30] VITALS: BP 108/72
[2018-09-25] MEDS: CEFTRIAXONE PMX 2GM/50ML 50 ML IV SCH (15:48)
[2018-09-25] MEDS: ENOXAPARIN 40 MG/0.4 ML SQ SCH (17:28)
[2018-09-25 18:59] VITALS: BP 118/72
[2018-09-26] MEDS: methylPREDNISolone SOD SUCC 125 MG/2 ML IVPush SCH ×3 (01:17→15:07)
[2018-09-26] MEDS: ALBUTEROL/IPRATROPIUM 2.5MG/0.5MG, 3 ML NPPB SCH ×4 (03:00→21:00)
[2018-09-26 03:13] VITALS: BP 123/90
[2018-09-26] MEDS: LORazepam 1MG TABLET PO SCH ×4 (06:11→21:45)
[2018-09-26] MEDS: LEVOTHYROXINE 75 MCG TABLET PO SCH (06:12)
[2018-09-26 07:32] VITALS: BP 137/83
[2018-09-26 08:37] LABS: BASOPHILS % (AUTO) 0 % (0-1); EOSINOPHILS % (AUTO) 0 % (1-7); LYMPHOCYTES # (AUTO) 0.67 x10^3/uL (1-3.4); LYMPHOCYTES % (AUTO) 7 % (22-44); MD NO; MEAN CORPUSCULAR HEMOGLOBIN 28.7 pg (27.0-34.8); MEAN CORPUSCULAR HGB CONC 34.1 g/dL (32.4-35.8); MEAN PLATELET VOLUME 8.3 fL (7.4-10.4); MONOCYTES # (AUTO) 0.58 x10^3/uL (0.2-0.8); MONOCYTES % (AUTO) 6 % (2-9); NEUTROPHILS # (AUTO) 8.56 x10^3/uL (1.8-6.8); NEUTROPHILS % (AUTO) 87 % (42-75); PLATELET COUNT 348 x10^3/uL (130-400); RED BLOOD COUNT 3.93 x10^6/uL (3.82-5.3); RED CELL DISTRIBUTION WIDTH 17.7 % (9.6-15.2)
[2018-09-26] MEDS: FUROSEMIDE 40 MG/4 ML IV SCH (09:33)
[2018-09-26] MEDS: PANTOPROZOLE 40MG TABLET PO SCH (09:33)
[2018-09-26] MEDS: SENNA/DOCUSATE TABLET PO SCH (09:33)
[2018-09-26] MEDS: DOXYCYCLINE 100MG TABLET PO SCH ×2 (09:33→21:45)
[2018-09-26] MEDS: FLUOXETINE HCL 20 MG CAPSULE PO SCH ×2 (09:34→21:47)
[2018-09-26] MEDS: POTASSIUM CHLORIDE 20 MEQ TAB.ER.PRT PO SCH ×2 (09:34→17:56)
[2018-09-26] MEDS: NEUTRA PHOS K 250 MG TABLET PO SCH ×3 (09:34→21:47)
[2018-09-26] MEDS: METHADONE 10 MG TABLET PO SCH ×3 (09:35→21:45)
[2018-09-26] MEDS: MULTIVITAMIN 1 TABLET PO SCH (09:36)
[2018-09-26 09:55] LABS: ALBUMIN 2.3 g/dL (3.4-5.0); ANION GAP 4 mmol/L (5-15); CALCIUM 8.9 mg/dL (8.5-10.1); CHLORIDE 104 mmol/L (98-107); CREATININE 0.66 mg/dL (0.55-1.02)
[2018-09-26] MEDS: BUDESONIDE 0.5 MG/2 ML INHA NPPB SCH ×2 (10:10→21:00)
[2018-09-26 12:09] VITALS: BP 135/66
[2018-09-26] MEDS: NYSTATIN 500,000 UNITS/5 ML UDC PO SCH ×2 (15:07→21:44)
[2018-09-26] MEDS: CEFTRIAXONE PMX 2GM/50ML 50 ML IV SCH (15:17)
[2018-09-26] MEDS: ENOXAPARIN 40 MG/0.4 ML SQ SCH (17:56)
[2018-09-26 18:48] VITALS: BP 138/72
[2018-09-26] MEDS: methylPREDNISolone SOD SUCC 40 MG/ML IVPush SCH (21:44)
[2018-09-27 01:07] VITALS: BP 151/80
[2018-09-27] MEDS ORDERED: DIPHENHYDRAMINE 25 MG CAPSULE PO PRN (02:00)
[2018-09-27] MEDS: NYSTATIN 500,000 UNITS/5 ML UDC PO SCH ×2 (02:31→08:56)
[2018-09-27] MEDS: ALBUTEROL/IPRATROPIUM 2.5MG/0.5MG, 3 ML NPPB SCH (03:00)
[2018-09-27] MEDS: LEVOTHYROXINE 75 MCG TABLET PO SCH (05:38)
[2018-09-27] MEDS: LORazepam 1MG TABLET PO SCH (05:38)
[2018-09-27 06:20] LABS: ANION GAP 3 mmol/L (5-15); BASOPHILS # (AUTO) 0.02 x10^3/uL (0-0.1); BASOPHILS % (AUTO) 0 % (0-1); CALCIUM 8.3 mg/dL (8.5-10.1); CHLORIDE 108 mmol/L (98-107); CREATININE 0.58 mg/dL (0.55-1.02); EOSINOPHILS % (AUTO) 0 % (1-7); LYMPHOCYTES # (AUTO) 0.94 x10^3/uL (1-3.4); LYMPHOCYTES % (AUTO) 10 % (22-44); MD NO; MEAN CORPUSCULAR HEMOGLOBIN 27.1 pg (27.0-34.8); MEAN CORPUSCULAR VOLUME 84.7 fL (80-100); MEAN PLATELET VOLUME 8.2 fL (7.4-10.4); MONOCYTES # (AUTO) 0.66 x10^3/uL (0.2-0.8); MONOCYTES % (AUTO) 7 % (2-9); NEUTROPHILS # (AUTO) 8.32 x10^3/uL (1.8-6.8); NEUTROPHILS % (AUTO) 84 % (42-75); PLATELET COUNT 328 x10^3/uL (130-400); RED BLOOD COUNT 3.97 x10^6/uL (3.82-5.3)
[2018-09-27 08:14] VITALS: BP 148/78
[2018-09-27] MEDS ORDERED: ALBU8.5H8 INH (08:21)
[2018-09-27] MEDS ORDERED: PRED20TA PO (08:21)
[2018-09-27] MEDS ORDERED: DOXY100T PO (08:21)
[2018-09-27] MEDS ORDERED: NYST1000 PO (08:21)
[2018-09-27] MEDS ORDERED: CEFD300C37 PO (08:21)
[2018-09-27] MEDS ORDERED: IPRA3AMP30 NPPB (08:21)
[2018-09-27] MEDS ORDERED: FLUC150T2 PO (08:21)
[2018-09-27] MEDS: methylPREDNISolone SOD SUCC 40 MG/ML IVPush SCH (08:55)
[2018-09-27] MEDS: POTASSIUM CHLORIDE 20 MEQ TAB.ER.PRT PO SCH (08:57)
[2018-09-27] MEDS: METHADONE 10 MG TABLET PO SCH (08:57)
[2018-09-27] MEDS: FLUOXETINE HCL 20 MG CAPSULE PO SCH (08:57)
[2018-09-27] MEDS: MULTIVITAMIN 1 TABLET PO SCH (08:57)
[2018-09-27] MEDS: DOXYCYCLINE 100MG TABLET PO SCH (08:57)
[2018-09-27] MEDS: PANTOPROZOLE 40MG TABLET PO SCH (08:58)
[2018-09-27] MEDS: SENNA/DOCUSATE TABLET PO SCH (08:58)
[2018-09-27] MEDS ORDERED: FUROSEMIDE 40 MG/4 ML IV SCH (09:00)
[2018-09-27] MEDS ORDERED: FUROSEMIDE 40 MG TABLET PO SCH (09:00)
== END 2018-09-27 13:16 | disposition home or self-care (01) | DRG 871 ==
LOC: ED 13:51 → EDIP 16:56 → 4WST 18:13 → 4EST 09-24 04:24
PROVIDERS: ADMIT Hospitalist; ATTEND Hospitalist
DX: A41.9 Sepsis, unspecified organism (principal); J18.9 Pneumonia, unspecified organism; E43 Unspecified severe protein-calorie malnutrition; J96.21 Acute and chronic respiratory failure with hypoxia; J44.0 Chronic obstructive pulmonary disease with (acute) lower respiratory infection; I50.30 Unspecified diastolic (congestive) heart failure; J44.1 Chronic obstructive pulmonary disease with (acute) exacerbation; G47.33 Obstructive sleep apnea (adult) (pediatric); J84.10 Pulmonary fibrosis, unspecified; M35.9 Systemic involvement of connective tissue, unspecified; D36.10 Benign neoplasm of peripheral nerves and autonomic nervous system, unspecified; E03.9 Hypothyroidism, unspecified; I11.0 Hypertensive heart disease with heart failure; F17.210 Nicotine dependence, cigarettes, uncomplicated; F41.1 Generalized anxiety disorder; H54.7 Unspecified visual loss; M06.9 Rheumatoid arthritis, unspecified; Z96.653 Presence of artificial knee joint, bilateral; G89.4 Chronic pain syndrome; M54.9 Dorsalgia, unspecified; D64.9 Anemia, unspecified; E87.6 Hypokalemia; R73.9 Hyperglycemia, unspecified; Z98.1 Arthrodesis status; Z80.8 Family history of malignant neoplasm of other organs or systems; Z82.49 Family history of ischemic heart disease and other diseases of the circulatory system; Z90.49 Acquired absence of other specified parts of digestive tract
CPT/HCPCS: 36415; 84145; 99285; J7613; J7620; J7626; 71046; 80048; 80053; 82040; 83605; 83735; 83880; 84100; 84439; 84443; 85025; 87040; 93005; 93306; 94640; 96365; 96375; G0378; J0456; J0696; J1650; J1940; J2060; J2920; J2930; J7030; J7050; Q0163

== ENCOUNTER → 2018-11-05 | Outpatient (CLI) | payer OTHER ==
[~2018-11-05] MED LIST changes: +DOXY100T PO; +FLUC150T2 PO; +NYST1000 PO
== END | disposition home or self-care (01) ==
LOC: CFH 10:21
PROVIDERS: ATTEND Internal Medicine
DX: R91.8 Other nonspecific abnormal finding of lung field (principal); J98.4 Other disorders of lung; M43.8X4 Other specified deforming dorsopathies, thoracic region; K76.89 Other specified diseases of liver; Z87.01 Personal history of pneumonia (recurrent)
CPT/HCPCS: 71250

== ENCOUNTER 2018-12-13 11:39 | Day surgery (SDC) | payer OTHER ==
[~2018-12-13] VITALS: Ht 167.6 cm; Wt 90.0 kg
[~2018-12-13 11:39] MED LIST changes: +AMOX1TAB64 PO; +SECU150P2 INJ; +SULF1TAB24 PO
[2018-12-13] MEDS ORDERED: MIDAZOLAM 1 MG/ML, 2ML ONE (11:51)
[2018-12-13] MEDS ORDERED: FENTANYL PF 250 MCG/5ML ONE (11:51)
[2018-12-13] MEDS ORDERED: HYDROmorphone 2 MG/ML, 1ML IVPush PRN (12:00)
[2018-12-13] MEDS ORDERED: LORazepam 2 MG/ML, 1ML IVPush PRN (12:00)
[2018-12-13] MEDS ORDERED: PROMETHAZINE 25 MG/ML, 1ML IV PRN (12:00)
[2018-12-13] MEDS ORDERED: OXYcodone 5 MG/5 ML ORAL.SOL UDC PO PRN (12:00)
[2018-12-13] MEDS ORDERED: ONDANSETRON 2MG/ML, 2ML IV PRN (12:00)
[2018-12-13] MEDS ORDERED: ONDANSETRON ODT 8 MG PO PRN (12:00)
[2018-12-13] MEDS ORDERED: LACTATED RINGERS 1,000 ML IV SCH (12:03)
[2018-12-13] MEDS ORDERED: CEFAZOLIN 1,000 MG ONE (12:27)
[2018-12-13] MEDS ORDERED: DEXAMETHASONE 4 MG/ML, 1ML ONE (12:27)
[2018-12-13] MEDS ORDERED: ONDANSETRON 2MG/ML, 2ML ONE (12:27)
[2018-12-13] MEDS ORDERED: PROPOFOL 10 MG/ML, 20ML ONE (12:27)
[2018-12-13] MEDS ORDERED: ACETAMINOPHEN 500 MG TABLET PO ONE (12:30)
[2018-12-13 12:31] VITALS: BP 121/75
[2018-12-13] MEDS ORDERED: BUPIVACAINE/PF 0.5% ONE (13:13)
[2018-12-13] MEDS ORDERED: LIDOCAINE 1%, 20ML INFIL ONE (13:31)
[2018-12-13] MEDS ORDERED: FENTANYL PF 100 MCG/2ML ONE (14:02)
[2018-12-13] MEDS ORDERED: OXYcodone 5 MG/5 ML ORAL.SOL UDC ONE (14:03)
[2018-12-13] MEDS: FENTANYL PF 100 MCG/2ML IV PRN ×2 (14:06→14:15)
== END 2018-12-13 16:15 | disposition home or self-care (01) ==
LOC: OUT 11:39 → EDSTATUS 16:30
PROVIDERS: ATTEND Orthopaedic Surgery
DX: T84.223A Displacement of internal fixation device of bones of foot and toes, initial encounter (principal); L97.519 Non-pressure chronic ulcer of other part of right foot with unspecified severity; M79.7 Fibromyalgia; M06.9 Rheumatoid arthritis, unspecified; J44.9 Chronic obstructive pulmonary disease, unspecified; I73.9 Peripheral vascular disease, unspecified; G47.30 Sleep apnea, unspecified; Z79.890 Hormone replacement therapy; Z79.899 Other long term (current) drug therapy; Z90.710 Acquired absence of both cervix and uterus; Z90.722 Acquired absence of ovaries, bilateral; Z90.49 Acquired absence of other specified parts of digestive tract; Z98.890 Other specified postprocedural states; Z87.891 Personal history of nicotine dependence; Z98.1 Arthrodesis status; Z99.81 Dependence on supplemental oxygen; Y83.8 Other surgical procedures as the cause of abnormal reaction of the patient, or of later complication, without mention of misadventure at the time of the procedure
CPT/HCPCS: 28825; 88305; 88311; 93005; J0690; J1100; J2250; J2405; J2704; J3010; J7120

== ENCOUNTER 2019-06-06 05:47 | Day surgery (SDC) | payer OTHER ==
[~2019-06-06] VITALS: Ht 167.6 cm; Wt 93.0 kg
[2019-06-06] MEDS ORDERED: LACTATED RINGERS 1,000 ML IV SCH (06:21)
[2019-06-06 06:26] VITALS: BP 125/81
[2019-06-06] MEDS ORDERED: BUPIVACAINE/PF 0.5% ONE (06:36)
[2019-06-06] MEDS ORDERED: EPINEPHRINE 1 MG/ML, 1ML ONE (06:36)
[2019-06-06] MEDS ORDERED: MIDAZOLAM 1 MG/ML, 2ML ONE (07:20)
[2019-06-06] MEDS ORDERED: FENTANYL PF 100 MCG/2ML ONE (07:21)
[2019-06-06] MEDS ORDERED: hydrALAzine 20 MG/ML, 1ML IV PRN (08:00)
[2019-06-06] MEDS ORDERED: KETOROLAC 30 MG/1 ML IV PRN (08:00)
[2019-06-06] MEDS ORDERED: MEPERIDINE/PF 25MG/0.5ML IVPush PRN (08:00)
[2019-06-06] MEDS ORDERED: FENTANYL PF 100 MCG/2ML IV PRN (08:00)
[2019-06-06] MEDS ORDERED: LABETALOL 5MG/ML, 20ML IV PRN (08:00)
[2019-06-06] MEDS ORDERED: ALBUTEROL SULFATE 2.5 MG/3 ML NPPB PRN (08:00)
[2019-06-06] MEDS ORDERED: ACETAMINOPHEN 325 MG TABLET PO PRN (08:00)
[2019-06-06] MEDS ORDERED: OXYcodone 5 MG/5 ML ORAL.SOL UDC PO PRN (08:00)
[2019-06-06] MEDS ORDERED: DIAZEPAM 5 MG/ML, 2ML IVPush PRN (08:00)
[2019-06-06] MEDS ORDERED: HYDROmorphone 2 MG/ML, 1ML IVPush PRN (08:00)
[2019-06-06] MEDS ORDERED: PROMETHAZINE 25 MG/ML, 1ML IV PRN (08:00)
[2019-06-06] MEDS ORDERED: PROPOFOL 10 MG/ML, 20ML ONE (08:16)
[2019-06-06] MEDS ORDERED: CEFAZOLIN 1,000 MG ONE (08:16)
[2019-06-06] MEDS ORDERED: SUCCINYLCHOLINE 20 MG/ML, 10ML ONE (08:16)
[2019-06-06] MEDS ORDERED: NEOSTIGMINE 1 MG/ML, 10ML ONE (08:16)
[2019-06-06] MEDS ORDERED: ROCURONIUM 10MG/ML,5ML ONE (08:16)
[2019-06-06] MEDS ORDERED: ONDANSETRON 2MG/ML, 2ML ONE (08:16)
[2019-06-06] MEDS ORDERED: DEXAMETHASONE 4 MG/ML, 1ML ONE ×2 (08:16)
[2019-06-06] MEDS ORDERED: GLYCOPYRROLATE 0.2MG/1ML, 5ML ONE (08:16)
== END 2019-06-06 10:10 | disposition home or self-care (01) ==
LOC: OUT 05:47
PROVIDERS: ATTEND Orthopaedic Surgery
DX: G56.02 Carpal tunnel syndrome, left upper limb (principal); J84.9 Interstitial pulmonary disease, unspecified; K21.9 Gastro-esophageal reflux disease without esophagitis; H40.9 Unspecified glaucoma; M06.9 Rheumatoid arthritis, unspecified; G47.33 Obstructive sleep apnea (adult) (pediatric); H54.61 Unqualified visual loss, right eye, normal vision left eye; Z79.890 Hormone replacement therapy; Z79.891 Long term (current) use of opiate analgesic; Z79.899 Other long term (current) drug therapy; Z87.891 Personal history of nicotine dependence; Z82.3 Family history of stroke; Z82.49 Family history of ischemic heart disease and other diseases of the circulatory system; Z82.61 Family history of arthritis; Z99.81 Dependence on supplemental oxygen
CPT/HCPCS: 64721; J0171; J0690; J1100; J2250; J2405; J2704; J3010; J7120; J2710; J0330

== ENCOUNTER → 2019-12-04 | Outpatient (CLI) | payer OTHER | END | disposition home or self-care (01) | LOC: CFH 12:50 | PROVIDERS: ATTEND Internal Medicine | DX: J47.9 Bronchiectasis, uncomplicated (principal); J98.4 Other disorders of lung; M85.88 Other specified disorders of bone density and structure, other site; M47.814 Spondylosis without myelopathy or radiculopathy, thoracic region; M48.55XA Collapsed vertebra, not elsewhere classified, thoracolumbar region, initial encounter for fracture; M40.294 Other kyphosis, thoracic region | CPT/HCPCS: 71250 ==

== ENCOUNTER 2019-12-26 14:38 | Inpatient (IN) | payer OTHER ==
[~2019-12-26] VITALS: Ht 167.6 cm; Wt 99.8 kg
--- NOTE | 2019-12-26 15:23 | NUR ---
PT TO ED FOR LOW SPO2. PT STATES SHE WENT TO GET A DRIVE IN [facility] AND SPO2 WAS 47%. PT WAS THEN REFERRED TO ED. 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 SPO2 93% ON 6.5LNC. ALL OTHER VSS. PT UNABLE TO GET INTO GOWN AT THIS TIME AND IS VERY DROWSY. AWAITING EDMD ASSESSMENT.
--- NOTE | 2019-12-26 15:36 | NUR ---
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 PT STATES SHE IS SUPPOSED TO WEAR O2 ALL THE TIME, BUT ONLY WEARS IT AT NIGHT AND WHEN SHE IS RESTING AT HOME BECAUSE IT IS INCONVENIENT. DR. LINARES TO FOR ASSESSMENT. AWAITING ORDERS.
--- NOTE | 2019-12-26 16:07 | NUR ---
ROME GRAHAM. [employer].
--- NOTE | 2019-12-26 16:27 | NUR ---
PT UP SELF TO RR WITH SHUFFLING GAIT. PT REFUSED WC AND ASSISTANCE BY THIS RN. PT RELUCTANLY TOOK PORTABLE O2 TANK.
[2019-12-26 16:29] LABS: INTERNATIONAL NORMALIZED RATIO 0.95 (0.93-1.1); PROTHROMBIN TIME 10.1 Seconds (9.6-11.5)
[2019-12-26 16:33] LABS: ALANINE AMINOTRANSFERASE 35 U/L (12-78); ALBUMIN 2.6 g/dL (3.4-5.0); CALCIUM 8.6 mg/dL (8.5-10.1); CHLORIDE 100 mmol/L (98-107); CREATININE 0.69 mg/dL (0.55-1.02)
[2019-12-26 16:36] LABS: ALKALINE PHOSPHATASE 94 U/L (45-117); BILIRUBIN,TOTAL 0.5 mg/dL (0.2-1.0); TOTAL PROTEIN 6.6 g/dL (6.4-8.2)
[2019-12-26 16:45] LABS: ANION GAP 6 mmol/L (5-15)
[2019-12-26 17:14] LABS: MEAN CORPUSCULAR HEMOGLOBIN 28.7 pg (27.0-34.8); MEAN CORPUSCULAR HGB CONC 32.4 g/dL (32.4-35.8); MEAN CORPUSCULAR VOLUME 88.7 fL (80-100); RED BLOOD COUNT 4.21 x10^6/uL (3.82-5.3); RED CELL DISTRIBUTION WIDTH 15.9 % (9.6-15.2)
[2019-12-26] MEDS ORDERED: CEFTRIAXONE PMX 1GM/50ML 50 ML ONE (17:28)
[2019-12-26] MEDS ORDERED: POTASSIUM CHLORIDE 40 MEQ in SODIUM CHLORIDE 0.9% 500 ML IV ONE (17:30)
[2019-12-26] MEDS ORDERED: CEFTRIAXONE PMX 1GM/50ML 50 ML IV ONE (17:30)
[2019-12-26] MEDS ORDERED: AZITHROMYCIN 500 MG in SODIUM CHLORIDE 0.9% 250 ML IV ONE (17:30)
[2019-12-26 17:49] LABS: MEAN PLATELET VOLUME 7.4 fL (7.4-10.4); PLATELET COUNT 241 x10^3/uL (130-400)
[2019-12-26 17:55] LABS: MD YES
[2019-12-26] MEDS ORDERED: ACETAMINOPHEN 325 MG TABLET PO PRN (18:00)
[2019-12-26] MEDS ORDERED: BISACODYL 10 MG SUPP PR PRN (18:00)
[2019-12-26] MEDS ORDERED: POLYETHYLENE GLYCOL 17 GM PACKET PO PRN (18:00)
[2019-12-26] MEDS ORDERED: FENTANYL PF 100 MCG/2ML IV ONE (18:00)
[2019-12-26] MEDS ORDERED: hydrALAzine 20 MG/ML, 1ML IVPush PRN (18:00)
[2019-12-26 18:06] LABS: BASOS#(MANUAL) 0.17 x10^3/uL (0-0.1); BASOS% (MANUAL) 1 % (0-1); LYMPH#(MANUAL) 0.51 x10^3/uL (1-3.4); LYMPHS% (MANUAL) 3 % (22-44); MONOS#(MANUAL) 0.68 x10^3/uL (0.3-2.7); MONOS% (MANUAL) 4 % (2-9); PMNS WITH VACUOLES 1+; SEG#(MANUAL) 15.73 x10^3/uL (1.8-6.8); SEGS% (MANUAL) 92 % (42-75)
[2019-12-26 18:07] LABS: <PLATELET ESTIMATE> ADEQUATE; <PLT MORPHOLOGY> NORMAL PLT MORPH; <RBC MORPHOLOGY> NORMAL
--- NOTE | 2019-12-26 18:22 | NUR ---
REPORT TO KALEIGH MONROE. PT READY FOR TRANSPORT AFTER EKG COMPLETE.
[2019-12-26] MEDS ORDERED: GABAPENTIN 300 MG CAPSULE PO ONE (18:30)
[2019-12-26] MEDS ORDERED: LORazepam 2 MG/ML, 1ML IVPush PRN (18:30)
[2019-12-26] MEDS ORDERED: LIDODERM 5% PATCH TD PRN (18:45)
[2019-12-26 20:00] VITALS: BP 114/60
[2019-12-26] MEDS ORDERED: METHADONE 10 MG TABLET PO SCH (21:00)
[2019-12-26] MEDS: HEPARIN 5,000 UNITS/ML, 1ML SQ SCH (21:17)
[2019-12-26] MEDS: METHADONE 10 MG TABLET PO SCH (21:17)
[2019-12-26] MEDS: POTASSIUM CHLORIDE 20 MEQ TAB.ER.PRT PO SCH (21:17)
[2019-12-26] MEDS: NS + 20MEQ KCL 1,000 ML IV SCH (21:39)
[2019-12-26] MEDS: LORazepam 0.5MG TABLET PO PRN (22:18)
[2019-12-27 01:14] VITALS: BP 122/63
[2019-12-27] MEDS: HEPARIN 5,000 UNITS/ML, 1ML SQ SCH ×3 (05:10→20:58)
[2019-12-27] MEDS: LEVOTHYROXINE 100 MCG TABLET PO SCH (05:10)
[2019-12-27 05:13] LABS: ANION GAP 5 mmol/L (5-15); CALCIUM 8.5 mg/dL (8.5-10.1); CHLORIDE 105 mmol/L (98-107); CREATININE 0.53 mg/dL (0.55-1.02)
[2019-12-27 06:59] VITALS: BP 121/60
[2019-12-27 08:02] LABS: MEAN CORPUSCULAR HEMOGLOBIN 28.9 pg (27.0-34.8); MEAN CORPUSCULAR HGB CONC 32.8 g/dL (32.4-35.8); MEAN CORPUSCULAR VOLUME 88.2 fL (80-100); RED BLOOD COUNT 4.06 x10^6/uL (3.82-5.3); RED CELL DISTRIBUTION WIDTH 16.1 % (9.6-15.2)
[2019-12-27] MEDS: SENNA/DOCUSATE TABLET PO SCH (08:02)
[2019-12-27] MEDS: FLUOXETINE HCL 20 MG CAPSULE PO SCH (08:02)
[2019-12-27] MEDS: POTASSIUM CHLORIDE 20 MEQ TAB.ER.PRT PO SCH (08:02)
[2019-12-27] MEDS: METHADONE 10 MG TABLET PO SCH ×3 (08:02→20:58)
[2019-12-27] MEDS: LORazepam 0.5MG TABLET PO PRN ×2 (08:03→15:18)
[2019-12-27] MEDS ORDERED: HYDROCHLOROTHIAZIDE 25 MG TABLET PO ONE (09:00)
[2019-12-27 09:23] LABS: BASOPHILS # (AUTO) 0.03 x10^3/uL (0-0.1); BASOPHILS % (AUTO) 0 % (0-1); EOSINOPHILS # (AUTO) 0.37 x10^3/uL (0-0.4); EOSINOPHILS % (AUTO) 3 % (1-7); LYMPHOCYTES # (AUTO) 1.14 x10^3/uL (1-3.4); LYMPHOCYTES % (AUTO) 9 % (22-44); MD SCAN; MEAN PLATELET VOLUME 7.7 fL (7.4-10.4); MONOCYTES # (AUTO) 0.68 x10^3/uL (0.2-0.8); MONOCYTES % (AUTO) 6 % (2-9); NEUTROPHILS % (AUTO) 82 % (42-75); PLATELET COUNT 261 x10^3/uL (130-400)
[2019-12-27 15:22] VITALS: BP 118/65
[2019-12-27] MEDS: AZITHROMYCIN 500 MG in SODIUM CHLORIDE 0.9% 250 ML IV SCH (17:02)
[2019-12-27] MEDS: NS + 20MEQ KCL 1,000 ML IV SCH (17:02)
[2019-12-27] MEDS: CEFTRIAXONE PMX 1GM/50ML 50 ML IV SCH (18:26)
[2019-12-27 18:45] VITALS: BP 95/61
[2019-12-28 00:01] VITALS: BP 127/59
[2019-12-28] MEDS: LORazepam 0.5MG TABLET PO PRN ×3 (00:36→16:07)
[2019-12-28] MEDS: LEVOTHYROXINE 100 MCG TABLET PO SCH (05:23)
[2019-12-28] MEDS: HEPARIN 5,000 UNITS/ML, 1ML SQ SCH ×3 (05:23→20:26)
[2019-12-28] MEDS: METHADONE 10 MG TABLET PO SCH ×3 (08:37→20:26)
[2019-12-28] MEDS: SENNA/DOCUSATE TABLET PO SCH (08:37)
[2019-12-28] MEDS: FLUOXETINE HCL 20 MG CAPSULE PO SCH (08:37)
[2019-12-28 09:21] VITALS: BP 119/52
[2019-12-28] MEDS: CHOLECALCIFEROL 400 UNITS TABLET PO SCH (12:41)
[2019-12-28] MEDS: ZINC SULFATE 220 MG CAPSULE PO SCH (12:41)
[2019-12-28] MEDS: ASCORBATE SODIUM 3,000 MG in SODIUM CHLORIDE 0.9% 250 ML IVPB SCH ×2 (12:42→19:30)
[2019-12-28] MEDS: NS + 20MEQ KCL 1,000 ML IV SCH (14:20)
[2019-12-28 16:03] VITALS: BP 112/64
[2019-12-28] MEDS: AZITHROMYCIN 500 MG in SODIUM CHLORIDE 0.9% 250 ML IV SCH (16:07)
[2019-12-28] MEDS: CEFTRIAXONE PMX 1GM/50ML 50 ML IV SCH (17:16)
[2019-12-28] MEDS: ALBUTEROL HFA 90 MCG/SPRAY INH PRN (17:41)
[2019-12-28 19:09] VITALS: BP 112/64
[2019-12-29] MEDS: LORazepam 0.5MG TABLET PO PRN ×3 (00:22→16:25)
[2019-12-29] MEDS: ASCORBATE SODIUM 3,000 MG in SODIUM CHLORIDE 0.9% 250 ML IVPB SCH ×4 (00:45→19:44)
[2019-12-29 02:00] VITALS: BP 119/68
[2019-12-29] MEDS: LEVOTHYROXINE 100 MCG TABLET PO SCH (04:28)
[2019-12-29] MEDS: HEPARIN 5,000 UNITS/ML, 1ML SQ SCH ×3 (04:28→21:54)
[2019-12-29 06:54] LABS: ANION GAP 6 mmol/L (5-15); CALCIUM 8.4 mg/dL (8.5-10.1); CHLORIDE 106 mmol/L (98-107)
[2019-12-29 06:55] LABS: CREATININE 0.45 mg/dL (0.55-1.02)
[2019-12-29 08:06] VITALS: BP 127/65
[2019-12-29] MEDS: SENNA/DOCUSATE TABLET PO SCH (09:32)
[2019-12-29] MEDS: CHOLECALCIFEROL 400 UNITS TABLET PO SCH (09:32)
[2019-12-29] MEDS: ZINC SULFATE 220 MG CAPSULE PO SCH (09:33)
[2019-12-29] MEDS: METHADONE 10 MG TABLET PO SCH ×3 (09:33→21:54)
[2019-12-29] MEDS: FLUOXETINE HCL 20 MG CAPSULE PO SCH (09:33)
[2019-12-29] MEDS: ALBUTEROL HFA 90 MCG/SPRAY INH PRN (09:38)
[2019-12-29 09:40] LABS: BASOPHILS # (AUTO) 0.05 x10^3/uL (0-0.1); BASOPHILS % (AUTO) 1 % (0-1); EOSINOPHILS # (AUTO) 0.27 x10^3/uL (0-0.4); EOSINOPHILS % (AUTO) 3 % (1-7); LYMPHOCYTES # (AUTO) 0.64 x10^3/uL (1-3.4); LYMPHOCYTES % (AUTO) 6 % (22-44); MD NO; MEAN CORPUSCULAR HEMOGLOBIN 28.9 pg (27.0-34.8); MEAN CORPUSCULAR HGB CONC 32.4 g/dL (32.4-35.8); MEAN CORPUSCULAR VOLUME 89.3 fL (80-100); MEAN PLATELET VOLUME 7.6 fL (7.4-10.4); MONOCYTES # (AUTO) 0.47 x10^3/uL (0.2-0.8); MONOCYTES % (AUTO) 5 % (2-9); NEUTROPHILS # (AUTO) 8.82 x10^3/uL (1.8-6.8); NEUTROPHILS % (AUTO) 86 % (42-75); PLATELET COUNT 257 x10^3/uL (130-400); RED BLOOD COUNT 3.84 x10^6/uL (3.82-5.3); RED CELL DISTRIBUTION WIDTH 16.6 % (9.6-15.2)
[2019-12-29 13:33] VITALS: BP 128/70
[2019-12-29] MEDS: NS + 20MEQ KCL 1,000 ML IV SCH (13:57)
[2019-12-29] MEDS: AZITHROMYCIN 500 MG in SODIUM CHLORIDE 0.9% 250 ML IV SCH (16:25)
[2019-12-29] MEDS: CEFTRIAXONE PMX 1GM/50ML 50 ML IV SCH (17:38)
[2019-12-29 21:07] VITALS: BP 125/65
[2019-12-30] MEDS: LORazepam 0.5MG TABLET PO PRN (01:40)
[2019-12-30] MEDS: ASCORBATE SODIUM 3,000 MG in SODIUM CHLORIDE 0.9% 250 ML IVPB SCH ×3 (01:40→21:29)
[2019-12-30 03:04] VITALS: BP 118/62
[2019-12-30] MEDS: LEVOTHYROXINE 100 MCG TABLET PO SCH (05:40)
[2019-12-30] MEDS: HEPARIN 5,000 UNITS/ML, 1ML SQ SCH ×3 (05:40→20:16)
[2019-12-30 07:40] VITALS: BP 132/66
[2019-12-30] MEDS: SENNA/DOCUSATE TABLET PO SCH (11:06)
[2019-12-30] MEDS: METHADONE 10 MG TABLET PO SCH ×3 (11:06→20:16)
[2019-12-30] MEDS: ZINC SULFATE 220 MG CAPSULE PO SCH (11:07)
[2019-12-30] MEDS: CHOLECALCIFEROL 400 UNITS TABLET PO SCH (11:07)
[2019-12-30] MEDS: FLUOXETINE HCL 20 MG CAPSULE PO SCH (11:07)
[2019-12-30] MEDS ORDERED: FUROSEMIDE 40 MG/4 ML IV ONE (11:30)
[2019-12-30] MEDS ORDERED: POTASSIUM CHLORIDE 20 MEQ TAB.ER.PRT PO ONE (11:30)
[2019-12-30 12:35] LABS: FIO2 100 %
[2019-12-30] MEDS ORDERED: NOREPINEPHRINE 8 MG in SODIUM CHLORIDE 0.9% 242 ML IV PRN (14:56)
[2019-12-30] MEDS ORDERED: PHARMACY MAY ADJ FOR RENAL FX MC SCH (15:00)
[2019-12-30] MEDS ORDERED: SENNA/DOCUSATE TABLET NG PRN (15:00)
[2019-12-30] MEDS ORDERED: LACTULOSE 20 GM/30 ML UDC NG PRN (15:00)
[2019-12-30] MEDS ORDERED: GLUCAGON 1 MG IM PRN (15:00)
[2019-12-30] MEDS ORDERED: SENNA 176 MG/5 ML ORAL SOL NG PRN (15:00)
[2019-12-30] MEDS ORDERED: DEXTROSE 50%, 50ML SYRINGE IVPush PRN (15:00)
[2019-12-30] MEDS ORDERED: BISACODYL 10 MG SUPP PR PRN (15:00)
[2019-12-30] MEDS: ALBUTEROL/IPRATROPIUM 2.5MG/0.5MG, 3 ML INLINE SCH ×3 (15:00→22:06)
[2019-12-30] MEDS ORDERED: LIDOCAINE-MPF 1%, 2ML ENDO PRN (15:00)
[2019-12-30] MEDS ORDERED: DEXTROSE 4 GM TAB.CHEW PO PRN (15:00)
[2019-12-30] MEDS ORDERED: FENTANYL PF 100 MCG/2ML ONE (15:15)
[2019-12-30] MEDS: FENTANYL PF 100 MCG/2ML IVPush PRN (15:21)
[2019-12-30] MEDS ORDERED: REMDESIVIR 200 MG in SODIUM CHLORIDE 0.9% 250 ML IVPB ONE (15:30)
[2019-12-30 15:57] LABS: ALANINE AMINOTRANSFERASE 29 U/L (12-78); TRIGLYCERIDES 162 mg/dL (50-200)
[2019-12-30 16:00] LABS: ALKALINE PHOSPHATASE 111 U/L (45-117); TROPONIN I < 0.015 ng/mL (0.000-0.045)
[2019-12-30] MEDS: MIDAZOLAM 1 MG/ML, 2ML IVPush PRN (16:19)
[2019-12-30 16:58] LABS: MICROSCOPIC NOT IND
[2019-12-30] MEDS: AZITHROMYCIN 500 MG in SODIUM CHLORIDE 0.9% 250 ML IV SCH (18:41)
[2019-12-30] MEDS: CEFTRIAXONE PMX 1GM/50ML 50 ML IV SCH (18:42)
[2019-12-30] MEDS: SODIUM CHLORIDE FLUSH 10ML SYR IVF SCH (20:16)
[2019-12-30] MEDS: PROPOFOL 100 ML IV PRN (20:16)
[2019-12-30 22:57] LABS: TROPONIN I < 0.015 ng/mL (0.000-0.045)
[2019-12-30 23:11] LABS: RAPID INFLUENZA A Negative (Negative); RAPID INFLUENZA B Negative (Negative)
[2019-12-31] MEDS: PROPOFOL 100 ML IV PRN ×6 (00:13→23:28)
[2019-12-31] MEDS: ALBUTEROL/IPRATROPIUM 2.5MG/0.5MG, 3 ML INLINE SCH ×6 (02:17→22:13)
[2019-12-31] MEDS: ASCORBATE SODIUM 3,000 MG in SODIUM CHLORIDE 0.9% 250 ML IVPB SCH ×4 (03:54→21:48)
[2019-12-31 05:12] LABS: ALBUMIN 1.9 g/dL (3.4-5.0); ANION GAP 8 mmol/L (5-15); CALCIUM 8.6 mg/dL (8.5-10.1); CHLORIDE 105 mmol/L (98-107)
[2019-12-31 05:17] LABS: ALANINE AMINOTRANSFERASE 27 U/L (12-78); ALKALINE PHOSPHATASE 107 U/L (45-117); BILIRUBIN,TOTAL 0.2 mg/dL (0.2-1.0)
[2019-12-31 05:56] LABS: MEAN CORPUSCULAR HEMOGLOBIN 28.9 pg (27.0-34.8); MEAN CORPUSCULAR HGB CONC 32.7 g/dL (32.4-35.8); MEAN CORPUSCULAR VOLUME 88.4 fL (80-100); MEAN PLATELET VOLUME 6.7 fL (7.4-10.4); PLATELET COUNT 274 x10^3/uL (130-400); RED BLOOD COUNT 3.55 x10^6/uL (3.82-5.3); RED CELL DISTRIBUTION WIDTH 16.5 % (9.6-15.2)
[2019-12-31] MEDS: LEVOTHYROXINE 100 MCG TABLET PO SCH (06:14)
[2019-12-31] MEDS: HEPARIN 5,000 UNITS/ML, 1ML SQ SCH ×3 (06:14→21:50)
[2019-12-31 06:23] LABS: BASOPHILS # (AUTO) 0.02 x10^3/uL (0-0.1); BASOPHILS % (AUTO) 0 % (0-1); EOSINOPHILS # (AUTO) 0.17 x10^3/uL (0-0.4); EOSINOPHILS % (AUTO) 2 % (1-7); LYMPHOCYTES # (AUTO) 1.37 x10^3/uL (1-3.4); LYMPHOCYTES % (AUTO) 16 % (22-44); MD SCAN; MONOCYTES # (AUTO) 0.43 x10^3/uL (0.2-0.8); MONOCYTES % (AUTO) 5 % (2-9); NEUTROPHILS # (AUTO) 6.68 x10^3/uL (1.8-6.8); NEUTROPHILS % (AUTO) 77 % (42-75)
[2019-12-31] MEDS: ZINC SULFATE 220 MG CAPSULE PO SCH (08:58)
[2019-12-31] MEDS: SENNA/DOCUSATE TABLET PO SCH (08:59)
[2019-12-31] MEDS: CHOLECALCIFEROL 400 UNITS TABLET PO SCH (09:00)
[2019-12-31] MEDS: FLUOXETINE HCL 20 MG CAPSULE PO SCH (09:00)
[2019-12-31] MEDS: METHADONE 10 MG TABLET PO SCH ×3 (09:01→21:50)
[2019-12-31] MEDS: SODIUM CHLORIDE FLUSH 10ML SYR IVF SCH ×2 (09:04→21:00)
[2019-12-31 09:22] LABS: INTERNATIONAL NORMALIZED RATIO 0.95 (0.93-1.1); PROTHROMBIN TIME 10.1 Seconds (9.6-11.5)
[2019-12-31] MEDS: MIDAZOLAM 1 MG/ML, 2ML IVPush PRN ×5 (09:27→23:28)
[2019-12-31] MEDS: REMDESIVIR 100 MG in SODIUM CHLORIDE 0.9% 250 ML IVPB SCH (16:58)
[2019-12-31] MEDS: CEFTRIAXONE PMX 1GM/50ML 50 ML IV SCH (18:27)
[2019-12-31] MEDS: AZITHROMYCIN 500 MG in SODIUM CHLORIDE 0.9% 250 ML IV SCH (19:47)
[2019-12-31] MEDS ORDERED: METHADONE INTENSOL 10 MG/ML ORAL CONC ONE (21:36)
[2019-12-31] MEDS: LORazepam 0.5MG TABLET PO PRN (21:49)
[2020-01-01] MEDS: ALBUTEROL/IPRATROPIUM 2.5MG/0.5MG, 3 ML INLINE SCH ×3 (02:15→11:00)
[2020-01-01] MEDS: ASCORBATE SODIUM 3,000 MG in SODIUM CHLORIDE 0.9% 250 ML IVPB SCH ×4 (03:05→21:46)
[2020-01-01] MEDS: PROPOFOL 100 ML IV PRN ×3 (03:05→09:40)
[2020-01-01 03:54] LABS: MEAN CORPUSCULAR HEMOGLOBIN 28.5 pg (27.0-34.8); MEAN CORPUSCULAR HGB CONC 32.7 g/dL (32.4-35.8); MEAN PLATELET VOLUME 6.7 fL (7.4-10.4); PLATELET COUNT 269 x10^3/uL (130-400); RED BLOOD COUNT 3.33 x10^6/uL (3.82-5.3); RED CELL DISTRIBUTION WIDTH 16.5 % (9.6-15.2)
[2020-01-01 04:12] LABS: BASOPHILS # (AUTO) 0.04 x10^3/uL (0-0.1); BASOPHILS % (AUTO) 1 % (0-1); EOSINOPHILS # (AUTO) 0.14 x10^3/uL (0-0.4); EOSINOPHILS % (AUTO) 2 % (1-7); LYMPHOCYTES # (AUTO) 1.47 x10^3/uL (1-3.4); LYMPHOCYTES % (AUTO) 19 % (22-44); MD SCAN; MONOCYTES # (AUTO) 0.33 x10^3/uL (0.2-0.8); MONOCYTES % (AUTO) 4 % (2-9); NEUTROPHILS # (AUTO) 5.63 x10^3/uL (1.8-6.8); NEUTROPHILS % (AUTO) 74 % (42-75)
[2020-01-01] MEDS: HEPARIN 5,000 UNITS/ML, 1ML SQ SCH ×3 (04:48→20:15)
[2020-01-01] MEDS: LEVOTHYROXINE 100 MCG TABLET PO SCH (04:48)
[2020-01-01] MEDS: FLUOXETINE HCL 20 MG CAPSULE PO SCH (08:00)
[2020-01-01] MEDS: METHADONE 10 MG TABLET PO SCH ×3 (08:01→20:14)
[2020-01-01] MEDS: ZINC SULFATE 220 MG CAPSULE PO SCH (08:01)
[2020-01-01] MEDS: SENNA/DOCUSATE TABLET PO SCH (08:01)
[2020-01-01] MEDS: FENTANYL PF 100 MCG/2ML IVPush PRN (08:01)
[2020-01-01] MEDS: CHOLECALCIFEROL 400 UNITS TABLET PO SCH (08:01)
[2020-01-01] MEDS: SODIUM CHLORIDE FLUSH 10ML SYR IVF SCH ×2 (08:02→20:15)
[2020-01-01] MEDS: POTASSIUM CHLORIDE 10% 40 MEQ/30 ML UDC PO SCH ×2 (09:42→20:14)
[2020-01-01] MEDS: ALBUMIN HUMAN 25% 100 ML IV SCH ×2 (09:44→20:14)
[2020-01-01] MEDS: ALBUTEROL HFA 90 MCG/SPRAY INH SCH ×2 (16:21→20:36)
[2020-01-01] MEDS: REMDESIVIR 100 MG in SODIUM CHLORIDE 0.9% 250 ML IVPB SCH (17:34)
[2020-01-01] MEDS: CEFTRIAXONE PMX 1GM/50ML 50 ML IV SCH (17:34)
[2020-01-01] MEDS: AZITHROMYCIN 500 MG in SODIUM CHLORIDE 0.9% 250 ML IV SCH (20:14)
[2020-01-01] MEDS: FLUTICASONE/VILANTEROL 200-25MCG/INH INH SCH (20:36)
[2020-01-01] MEDS ORDERED: LORazepam 1MG TABLET PO PRN (22:00)
[2020-01-02] MEDS: LORazepam 0.5MG TABLET PO PRN (03:45)
[2020-01-02] MEDS: ASCORBATE SODIUM 3,000 MG in SODIUM CHLORIDE 0.9% 250 ML IVPB SCH (03:46)
[2020-01-02] MEDS: HEPARIN 5,000 UNITS/ML, 1ML SQ SCH ×2 (03:47→08:49)
[2020-01-02] MEDS: ALBUMIN HUMAN 25% 100 ML IV SCH (03:47)
[2020-01-02 04:29] LABS: ALANINE AMINOTRANSFERASE 29 U/L (12-78); ALBUMIN 2.5 g/dL (3.4-5.0); ANION GAP 2 mmol/L (5-15); CALCIUM 8.6 mg/dL (8.5-10.1); CHLORIDE 108 mmol/L (98-107); CREATININE 0.48 mg/dL (0.55-1.02)
[2020-01-02 04:31] LABS: ALKALINE PHOSPHATASE 83 U/L (45-117); BILIRUBIN,TOTAL 0.3 mg/dL (0.2-1.0); TRIGLYCERIDES 174 mg/dL (50-200)
[2020-01-02] MEDS: LEVOTHYROXINE 100 MCG TABLET PO SCH (05:40)
[2020-01-02] MEDS: ALBUTEROL HFA 90 MCG/SPRAY INH SCH ×2 (05:40→11:40)
[2020-01-02 05:47] LABS: MEAN PLATELET VOLUME 6.7 fL (7.4-10.4); PLATELET COUNT 279 x10^3/uL (130-400)
[2020-01-02 05:48] LABS: MEAN CORPUSCULAR HEMOGLOBIN 28.2 pg (27.0-34.8); MEAN CORPUSCULAR HGB CONC 32.1 g/dL (32.4-35.8); MEAN CORPUSCULAR VOLUME 87.8 fL (80-100); RED BLOOD COUNT 3.61 x10^6/uL (3.82-5.3)
[2020-01-02 05:54] LABS: BASOPHILS % (AUTO) 1 % (0-1); EOSINOPHILS % (AUTO) 2 % (1-7); LYMPHOCYTES # (AUTO) 3.03 x10^3/uL (1-3.4); LYMPHOCYTES % (AUTO) 26 % (22-44); MD SCAN; MONOCYTES # (AUTO) 0.53 x10^3/uL (0.2-0.8); MONOCYTES % (AUTO) 4 % (2-9); NEUTROPHILS # (AUTO) 8.02 x10^3/uL (1.8-6.8); NEUTROPHILS % (AUTO) 68 % (42-75)
[2020-01-02 06:00] VITALS: BP 139/65
[2020-01-02] MEDS: CHOLECALCIFEROL 400 UNITS TABLET PO SCH (08:47)
[2020-01-02] MEDS: SENNA/DOCUSATE TABLET PO SCH (08:47)
[2020-01-02] MEDS: METHADONE 10 MG TABLET PO SCH (08:48)
[2020-01-02] MEDS: FLUOXETINE HCL 20 MG CAPSULE PO SCH (08:48)
[2020-01-02] MEDS: FLUTICASONE/VILANTEROL 200-25MCG/INH INH SCH (09:08)
[2020-01-02] MEDS: SODIUM CHLORIDE FLUSH 10ML SYR IVF SCH (09:08)
[2020-01-02] MEDS ORDERED: LEVO750T26 PO (09:38)
[2020-01-02] MEDS: POTASSIUM CHLORIDE 20 MEQ TAB.ER.PRT PO ONE ×2 (10:00→11:36)
[2020-01-02] MEDS: FUROSEMIDE 40 MG/4 ML IV ONE ×2 (10:00→11:37)
== END 2020-01-02 13:10 | disposition home or self-care (01) | DRG 208 ==
LOC: ED 17:30 → EDIP 17:36 → ED 18:20 → 4NW 18:44 → ICU 12-30 12:21
PROVIDERS: ADMIT Family Medicine; ATTEND Internal Medicine
PROC: 0T9B70Z Drainage of Bladder with Drainage Device, Via Natural or Artificial Opening (ICD-10-PCS; principal; 2019-12-30)
PROC: 5A1945Z Respiratory Ventilation, 24-96 Consecutive Hours (ICD-10-PCS; 2019-12-30)
PROC: 0BH17EZ Insertion of Endotracheal Airway into Trachea, Via Natural or Artificial Opening (ICD-10-PCS; 2019-12-30)
PROC: 03HY32Z Insertion of Monitoring Device into Upper Artery, Percutaneous Approach (ICD-10-PCS; 2019-12-30)
PROC: 02HV33Z Insertion of Infusion Device into Superior Vena Cava, Percutaneous Approach (ICD-10-PCS; 2019-12-30)
PROC: B548ZZA Ultrasonography of Superior Vena Cava, Guidance (ICD-10-PCS; 2019-12-30)
DX: J15.9 Unspecified bacterial pneumonia (principal); J96.21 Acute and chronic respiratory failure with hypoxia; F11.20 Opioid dependence, uncomplicated; J44.0 Chronic obstructive pulmonary disease with (acute) lower respiratory infection; Z99.11 Dependence on respirator [ventilator] status; E03.9 Hypothyroidism, unspecified; F41.9 Anxiety disorder, unspecified; G47.33 Obstructive sleep apnea (adult) (pediatric); G62.9 Polyneuropathy, unspecified; G89.29 Other chronic pain; I11.0 Hypertensive heart disease with heart failure; K74.60 Unspecified cirrhosis of liver; M06.9 Rheumatoid arthritis, unspecified; M19.90 Unspecified osteoarthritis, unspecified site; T38.0X5A Adverse effect of glucocorticoids and synthetic analogues, initial encounter; Z85.850 Personal history of malignant neoplasm of thyroid; Z87.891 Personal history of nicotine dependence; Z96.653 Presence of artificial knee joint, bilateral; J84.10 Pulmonary fibrosis, unspecified; Z99.81 Dependence on supplemental oxygen; Z20.828 Contact with and (suspected) exposure to other viral communicable diseases; Z82.49 Family history of ischemic heart disease and other diseases of the circulatory system; Z82.5 Family history of asthma and other chronic lower respiratory diseases
CPT/HCPCS: 36415; 36600; 71045; 80048; 80053; 80069; 81003; 82803; 83036; 83516; 83605; 83615; 83735; 83880; 84075; 84132; 84145; 84443; 84450; 84460; 84478; 84484; 85025; 85379; 85610; 86038; 86140; 86160; 86200; 86225; 86235; 86255; 86256; 86376; 86430; 86431; 86606; 86635; 87040; 87070; 87081; 87205; 87260; 87275; 87276; 87279; 87280; 87299; 87305; 87400; 87635; 93005; 93308; 93321; 93325; 94002; 94003; 94150; 94640; 96365; 96368; 99285; G0378; J0456; J0696; J1644; J1940; J2250; J2704; J3010; J3480; P9047; J7040; J7050; J7512; U0001-CS

== ENCOUNTER → 2020-11-16 | Outpatient (CLI) | payer OTHER ==
[~2020-11-16] MED LIST changes: +LEVO750T26 PO
== END | disposition home or self-care (01) ==
LOC: CFH 13:23
PROVIDERS: ATTEND Internal Medicine
DX: R91.8 Other nonspecific abnormal finding of lung field (principal); D36.10 Benign neoplasm of peripheral nerves and autonomic nervous system, unspecified
CPT/HCPCS: 71250